=== PATIENT | male | born 1960 | race Caucasian/White ===

== ENCOUNTER 2017-08-29 14:34 | Inpatient (IN) | payer BC ==
[2017-08-29 15:11] LABS: #Basophils 0.1 thou/uL (0.0-0.2); #Lymphocytes 1.6 thou/uL (1.20-3.40); #Monocytes 0.6 thou/uL (0.11-0.59); #Neutrophils 6.3 thou/uL (1.40-6.50); %Basophils 0.8 % (0.0-1.0); %Eosinophils 0.3 % (0.0-10.0); %Lymphocytes 19.1 % (21.0-51.0); %Monocytes 6.8 % (0.0-10.0); Hemoglobin 13.4 g/dL (14.0-18.0); Mean Corpuscular HGB CONC 34.8 g/dL (32.0-36.0); Mean Corpuscular Hemoglobin 30.9 pg (27.0-31.0); Mean Corpuscular Volume 88.7 fl (80.0-94.0); Platelet Count 283 thou/uL (130-400); RBC Distribution Width 12.5 % (11.5-14.5); Red Blood Cell (RBC) Count 4.33 mill/uL (4.70-6.10); White Blood Cell (WBC) Count 8.6 thou/uL (4.8-10.8)
--- NOTE | 2017-08-29 15:26 | RAD ---
CHEST ONE VIEW: History: Chest pain. Comparison: None. FINDINGS: The lungs are clear. No pneumothorax or effusion. Cardiac silhouette and mediastinal contours are wit hin normal limits. IMPRESSION: NO acute intrathoracic abnormality. POS: OFF
[2017-08-29 15:33] LABS: ALT (SGPT) 16 U/L (8-55); AST (SGOT) 17 U/L (5-34); Albumin 4.3 g/dL (3.5-5.0); Alkaline Phosphatase 86 U/L (40-150); Anion Gap 13 mmol/L (10-20); BUN (Urea Nitrogen) 14 mg/dL (8.4-25.7); CK (CPK) 138 U/L (30-200); Calc. Creatinine Clearance 0 mL/min (70-130); Calcium 9.4 mg/dL (7.8-10.44); Carbon Dioxide 23 mmol/L (22-29); Chloride 106 mmol/L (98-107); Estimated GFR-MDRD 90; Glucose 109 mg/dL (70-105); Potassium 3.5 mmol/L (3.5-5.1); Protein, Total 7.3 g/dL (6.0-8.3); Sodium 138 mmol/L (136-145)
[2017-08-29 15:36] LABS: CKMB 0.6 ng/mL (0-6.6); Troponin I Less than 0.010 ng/mL (< 0.028)
[2017-08-29] MEDS ORDERED: Nitroglycerin 2% Ointment 1 INCH/1 GM Packet ONE (15:45)
[2017-08-29 18:54] LABS: Troponin I Less than 0.010 ng/mL (< 0.028)
[2017-08-29] MEDS ORDERED: Acetaminophen 325 MG TAB PO PRN ×2 (19:08→19:18)
[2017-08-29] MEDS ORDERED: Ondansetron ODT 4 MG TAB SL PRN (19:08)
[2017-08-29] MEDS ORDERED: Ondansetron HCl/PF 4 MG/2 ML Vial IVP PRN ×2 (19:08→19:18)
[2017-08-29] MEDS ORDERED: Ondansetron ODT 4 MG TAB PO PRN (19:18)
[2017-08-29] MEDS ORDERED: Nitroglycerin 0.4 MG TAB (25 Tab Bottle) PO PRN (19:18)
[2017-08-29] MEDS ORDERED: Mag-Al 1200 mg/1200 mg/30 ML UDCUP PO PRN (19:18)
[2017-08-29 20:02] VITALS: BMI 27.0
[2017-08-29] MEDS: Docusate 100 MG CAP PO SCH (21:21)
[2017-08-29] MEDS: Famotidine 20 MG TAB PO SCH (21:21)
[2017-08-29] MEDS: Nitroglycerin 2% Ointment 1 INCH/1 GM Packet TOP SCH (21:21)
[2017-08-29 22:00] LABS: Troponin I Less than 0.010 ng/mL (< 0.028)
--- NOTE | 2017-08-29 22:36 | HP ---
PRIMARY CARE PHYSICIAN: Dr. Pedraza. CHIEF COMPLAINT: Tightness in the chest and losing my voice. HISTORY OF PRESENT ILLNESS: Mr. Cortez is a pleasant 57-year-old gentleman who has a history of hy pertension and prediabetes as well as spasmodic dysphonia. He was in his usual state of health until earlier today. He says he was just basically sitting at his desk doing some paperwork, when he star garry having some tightness in his chest. He says he rated it about 5/10, it was continuous and he say s he was not really feeling right. For this reason, he went and apparently saw an EMT who then refer red him to the hospital here. He says he was given nitroglycerin paste and aspirin and the pain has since improved to about a 3/10. It has radiated into his right arm and he says down the radial vein. He denies feeling short of breath, but did have some nausea. There was no vomiting; however, no di aphoresis. He says while he was in the ambulance on the way to the hospital, he started losing his v oice, then getting extremely hoarse. He says something like this happen about 8 years ago after he h ad returned from a trip to [place]. He says that he lost a whole lot of weight, lost a lot of his musc le mass as well as losing his voice. He saw all kinds of a specialist and was eventually referred to the [facility]. He says while he was there, they did not know what was going on with him. They th ought he might have Davida Gehrig disease as well as an advanced Parkinson's. This was ruled out and ev entually he was labeled with a diagnosis of spasmodic dysphonia. His is at the bedside says payal t they noticed that the muscles around the vocal cords were hypertrophied and they did some type of m uscle reduction surgery sounds like a myomectomy to help the situation and eventually it went away. REVIEW OF SYSTEMS: Constitutional: There have been no fevers or chills, no night sweats, no weight loss. HEENT: He denies any headaches, no dizziness, no visual changes, no sore throat, no rhinorrhe a, no neck pain, but he has had the decrease in his voice. Pulmonary: No hemoptysis, no cough, no w heezing. Cardiovascular: As in the history of present illness. Gastrointestinal: He has had some nausea, but no vomiting, no change in bowels. Genitourinary: No urinary frequency, hematuria, no he sitancy. Neurologic: No focal weakness, numbness, no seizures. Psychiatric: No symptoms of anxiet y or depression. Skin/Integument: No skin changes. No rash. Musculoskeletal: No muscle pains, we akness or joint pains. PAST MEDICAL HISTORY: Significant for spasmodic dysphonia, hypertension, prediabetes, and restless l egs syndrome. PAST SURGICAL HISTORY: He had some type of muscles remove from around the vocal cords as well as Bot ox injections prior to that. ALLERGIES: CODEINE. SOCIAL HISTORY: He is , has three adopted children. He works at the [employer]. He is . He rarely drinks. He denies any tobacco use. FAMILY HISTORY: Significant for hypertension, diabetes, and his mother had heart disease and at age 77 and also had Parkinson disease. PHYSICAL EXAMINATION: GENERAL: He is alert and oriented. He appears to be in no acute distress. VITAL SIGNS: Blood pressure was 143/96, heart rate 85, respiratory rate 16, and temperature is 98.8. HEENT: His pupils are equal, round, and reactive. Extraocular muscles are intact. Sclerae are anic teric. Throat no erythema, no exudates. NECK: No adenopathy, no bruits, no masses were noted. LUNGS: Clear to auscultation. There was no wheezing, no rales. CARDIOVASCULAR: He had a normal S1, S2. There was no S3 or S4. No murmurs, clicks or rubs. ABDOMEN: Obese, it is soft, it is nontender, and nondistended. Positive for bowel sounds. There is no rebound or guarding. EXTREMITIES: There is no clubbing, cyanosis, no edema. NEUROLOGICALLY: His exam is nonfocal. LABORATORY: EKG: Sinus rhythm, the rate is 97, he did have a Q-wave in 3 possibly also in aVF and t here were some nonspecific ST wave changes. Chest x-ray: Heart size is normal. The aortic arch was a bit flattened; however, there was no airspace disease and no evidence of pleural effusion. Sodium was 138, potassium 3.5, chloride is 106, CO2 was 23, BUN of 14, creatinine 0.87, and glucose is 109. Troponin less than 0.010. White blood cell count 8.6, hemoglobin 13.4, hematocrit is 38.4, platele t count is 283. ASSESSMENT AND PLAN: 1. This is a pleasant 57-year-old gentleman who presents with chest tightness and also losing his vo ice. I have explained to the patient that is very hard to determine if these 2 problems are related or not. I suspect that the loosing of the voice that is likely an exacerbation of what he had severa l years ago and unlikely related to the initial present complaint of chest tightness. With regards t o the chest tightness, he is at moderate risk for coronary artery disease. He will be placed in obse rvation, ruled out, and will get a nuclear stress test to further risk stratify along with a lipid pa dinesh. We will also check an echocardiogram in the event this is some type of viral pericarditis, whic h is unlikely; however, we will check an echo as well. 2. Hypertension. We will continue losartan as well as p.r.n. medication for blood pressure. 3. Prediabetes. Continue metformin and we will also place him on sliding scale insulin. Further re commendations are to follow.
[2017-08-30] MEDS: Nitroglycerin 2% Ointment 1 INCH/1 GM Packet TOP SCH ×2 (04:59→13:55)
[2017-08-30 05:45] LABS: #Basophils 0.1 thou/uL (0.0-0.2); #Eosinphils 0.1 thou/uL (0.0-0.7); #Lymphocytes 2.2 thou/uL (1.20-3.40); #Monocytes 0.7 thou/uL (0.11-0.59); #Neutrophils 3.9 thou/uL (1.40-6.50); %Basophils 0.8 % (0.0-1.0); %Eosinophils 1.7 % (0.0-10.0); %Lymphocytes 31.7 % (21.0-51.0); %Monocytes 9.6 % (0.0-10.0); %Neutrophils 56.3 % (42.0-75.0); Hemoglobin 12.7 g/dL (14.0-18.0); Mean Corpuscular Hemoglobin 31.1 pg (27.0-31.0); Mean Corpuscular Volume 91.7 fl (80.0-94.0); Mean Platelet Volume 8.9 fL (7.4-10.4); Platelet Count 183 thou/uL (130-400); RBC Distribution Width 12.9 % (11.5-14.5); Red Blood Cell (RBC) Count 4.07 mill/uL (4.70-6.10)
[2017-08-30 05:46] LABS: Anion Gap 13 mmol/L (10-20); BUN (Urea Nitrogen) 14 mg/dL (8.4-25.7); Calc. Creatinine Clearance 122 mL/min (70-130); Carbon Dioxide 22 mmol/L (22-29); Cardiac Risk 5.9 (Less than 4.5); Chloride 108 mmol/L (98-107); Cholesterol 218 mg/dl (< 200 Desired); Estimated GFR-MDRD Greater than 90; Glucose 112 mg/dL (70-105); HDL Cholesterol 37 mg/dL (>60 Neg Risk); Potassium 3.8 mmol/L (3.5-5.1); Sodium 139 mmol/L (136-145)
[2017-08-30 05:55] LABS: LDL Cholesterol, Calculated 131 mg/dL
[2017-08-30 08:19] LABS: Triglycerides 220 mg/dL (Less than 150)
[2017-08-30] MEDS: Docusate 100 MG CAP PO SCH (08:35)
[2017-08-30] MEDS: Famotidine 20 MG TAB PO SCH ×2 (08:36→21:03)
[2017-08-30] MEDS ORDERED: Aspirin 325 MG TAB PO SCH (09:00)
[2017-08-30] MEDS ORDERED: Enoxaparin Sodium 40 MG/0.4 ML SYRINGE SC SCH (09:00)
[2017-08-30] MEDS ORDERED: Iopamidol 370 76% 100 ML VIAL ONE (11:18)
--- NOTE | 2017-08-30 13:36 | PDOC.PN ---
- Subjective Encounter Start Date: 08/30/17 Encounter Start Time: 13:35 Mr. Cortez was seen today in follow-up of chest pain. He is feeling a little better today. His voice has improved. - Objective Resuscitation Status: Resuscitation Status FULL:Full Resuscitation MAR Reviewed: Yes Vital Signs & Weight: Vital Signs (12 hours) Temp Pulse Resp BP BP Pulse Ox 08/30/17 11:43 98.2 F 63 16 115/83 96 08/30/17 07:38 97.5 F L 70 18 08/30/17 07:10 98.3 F 68 16 102/71 99 08/30/17 04:25 70 18 105/66 98 Weight Weight 193 lb 11.2 oz Result Diagrams: 08/30/17 04:34 08/30/17 04:34 Phys Exam - Physical Examination HEENT: PERRLA Respiratory: no wheezing, no rales, no rhonchi, clear to auscultation bilateral Cardiovascular: RRR, no significant murmur, no rub Gastrointestinal: soft, non-tender, no distention, positive bowel sounds Musculoskeletal: no edema Dx/Plan (1) Chest pain Code(s): R07.9 - CHEST PAIN, UNSPECIFIED Status: Acute (2) Hypertension Code(s): I10 - ESSENTIAL (PRIMARY) HYPERTENSION Status: Acute (3) Dyslipidemia Code(s): E78.5 - HYPERLIPIDEMIA, UNSPECIFIED Status: Acute - Plan * Chest pain- Stress test results were noted- he had an elevated TID * Cardiology has been consulted * HTN- blood pressure has been stable * Dyslipidemia- will change Pravastatin to Lipitor.
--- NOTE | 2017-08-30 13:44 | NM ---
CARDIAC SPECT: HISTORY: A 57-year-old male with chest pain, hypertension, diabetes. TECHNIQUE: A myocardial perfusion scan was performed using the single-isotope 1-day protocol with Technetium 99m sestamibi. Eleven mCi were injected intravenously for the rest exam followed by 32 mCi for the stre ss study. Pharmacologic stress with adenosine is monitored and interpreted by Barb Wilson PA-C. FINDINGS: Homogeneous tracer distribution is seen in the myocardial segments on stress and rest images without fixed or reversible defects. The left ventricular cavity appears larger on stress compared to rest w ith a TID ratio of 1.7. GATED SPECT LVEF: 62%. WALL MOTION EXAM: Normal. IMPRESSION: TID ratio is 1.7. Clinical correlation is recommended. POS: GABINO
[2017-08-30] MEDS ORDERED: Fentanyl 100 MCG/2 ML VIAL ONE (15:19)
[2017-08-30] MEDS ORDERED: Midazolam HCl 2 mg/2 ml Vial ONE (15:19)
[2017-08-30] MEDS ORDERED: Lidocaine 1% (PF) 30 ML VIAL ONE (15:29)
[2017-08-30] MEDS ORDERED: Vecuronium 10 MG VIAL ONE ×2 (15:33→16:16)
[2017-08-30] MEDS ORDERED: Calcium Chloride 1 GM/10 ML Abboject SYRINGE ONE (15:33)
[2017-08-30] MEDS ORDERED: PROPOFOL 200 MG/20 ML VIAL ONE (15:33)
[2017-08-30] MEDS ORDERED: Aminocaproic Acid 5 GM/20 ML VIAL ONE (15:33)
[2017-08-30] MEDS ORDERED: Heparin 5,000 UNITS/ML VIAL ONE (15:33)
[2017-08-30] MEDS ORDERED: Sodium Bicarb 50 MEQ/50 ML Abboject 8.4% SYRINGE ONE (15:33)
[2017-08-30] MEDS ORDERED: Heparin 30,000 units/30 ml VIAL ONE (15:33)
[2017-08-30] MEDS ORDERED: PHENYLEPHRINE-NS 100 MCG/ML 10 ML SYRINGE ONE (15:33)
[2017-08-30] MEDS ORDERED: Thrombin 5000 UNITS/5 ML VIAL ONE (15:33)
[2017-08-30] MEDS ORDERED: Protamine Sulfate 250 MG/25 ML VIAL ONE (15:33)
[2017-08-30] MEDS ORDERED: DOPamine 400 MG/10 ML VIAL ONE (15:33)
[2017-08-30] MEDS ORDERED: Nitroglycerin 100MG/250ML BOT 250 ML ONE (15:48)
[2017-08-30] MEDS ORDERED: Heparin 10,000 UNITS/1 ML VIAL ONE ×2 (16:08→16:42)
[2017-08-30] MEDS ORDERED: Midazolam HCl 5 mg/5 ml Vial ONE (16:16)
[2017-08-30] MEDS ORDERED: Dexmedetomidine 200 MCG/2 ML VIAL ONE (16:16)
[2017-08-30] MEDS ORDERED: Atropine Sulfate 1 mg/1 ml Vial ONE (16:17)
[2017-08-30] MEDS ORDERED: ADENOSINE 60 MG/20 ML VIAL ONE (16:34)
[2017-08-30] MEDS ORDERED: Heparin 10,000 UNITS/1 ML VIAL 30,000 UNITS in Sodium Chloride 0.9% 1,000 ML FS SCH (16:45)
--- NOTE | 2017-08-30 16:59 | CON ---
DATE OF CONSULTATION: 08/30/2017 REASON FOR CONSULTATION: Chest pain, abnormal stress study. HISTORY OF PRESENT ILLNESS: Mr. Crotez is a very pleasant 57-year-old gentleman with a past histor y of diabetes mellitus, hypertension, hyperlipidemia, recently presented with chest pain. It was acu te in onset, lasting for 4 hours. It was dull in nature with radiation to his neck and jaw in additi on to left arm pain. No diaphoresis present. No other ameliorating or exacerbating factors present. He has no previous history of underlying coronary artery disease. PAST MEDICAL HISTORY: As above. ALLERGIES: CODEINE. SOCIAL HISTORY: He is . No current tobacco or alcohol use. FAMILY HISTORY: Positive for CAD. REVIEW OF SYSTEMS: Ten-point is reviewed and as above, otherwise negative. PHYSICAL EXAMINATION: GENERAL: Patient is a pleasant male who is in no acute distress. The patient appears his/her stated age. VITAL SIGNS: Blood pressure 115/83, pulse 60, temperature 98.2. NEUROLOGIC: The patient is alert and oriented times 3 with no focal neurologic deficits. HEENT: Sclerae without icterus. Mouth has moist mucous membranes with normal pallor. NECK: No JVD. Carotid upstroke brisk. No bruits bilaterally. LUNGS: Clear to auscultation with unlabored respirations. BACK: No scoliosis or kyphosis. CARDIAC: Regular rate and rhythm with normal S1 and S2. No S3 or S4 noted. No significant rubs, murmurs, thrills, or gallops noted throughout the precordium. PMI is not displa fransisco. There is no parasternal heave. ABDOMEN: Soft, nontender, nondistended. No peritoneal signs present. No hepatosplenomegaly. No abnormal striae. EXTREMITIES: A 2+ femoral and 2+ dorsalis pedis pulses. No cyanosis, clubbing, or edema. SKIN: No gross abnormalities. PERTINENT LABS: Hemoglobin 12.7, creatinine 0.83. EKG: Normal sinus rhythm, nonspecific ST-T wave changes. Stress rest myocardial perfusion study, no ischemia present with a TID of 1.7. IMPRESSION: 1. Chest pain. 2. Abnormal stress study. 3. Diabetes mellitus. 4. Hypertension. RECOMMENDATIONS: Mr. Cortez' symptoms certainly suggest angina. His elevated TID is likely second dixie to low end systolic and end diastolic volumes. Given though the symptoms strongly suggesting ang zohreh, we would recommend coronary angiography plus PCI. I discussed the procedure in full detail with Mr. Cortez. I discussed the procedure in full detail with the patient. The risks of the procedur e were also discussed. The risks of the procedure include but are not limited to the following: Patricia th, stroke, ME, need for emergency surgery, loss of limb, bleeding, and infection, as well as a react ion to the dye causing kidney failure and needing long-term dialysis. I also discussed the risks of PCI to include all of the above including coronary dissection and perforation in addition to acute st ent thrombosis and restenosis. All questions about the procedure were answered. Given the above, th e patient agreed to proceed with coronary angiography and possible PCI. All questions were answered, also discussed drug-coated versus nondrug stent placement. There is no contraindication to proceed if needed. Further recommendations pending the above.
[2017-08-30] MEDS ORDERED: Albumin 5% 500 ML ONE (17:18)
[2017-08-30] MEDS ORDERED: Fentanyl 250 MCG/5 ML VIAL ONE (18:00)
[2017-08-30] MEDS ORDERED: Magnesium Sulfate 5 GM in Sodium Chloride 0.9% 250 ML 1,000 ML IV SCH (19:05)
[2017-08-30] MEDS ORDERED: Post-Op Insulin Drip Protocol IVPB ONE (19:05)
[2017-08-30] MEDS ORDERED: hydrALAZINE 20 MG/ML VIAL SLOW IVP PRN (19:05)
[2017-08-30] MEDS ORDERED: Mag-Al 1200 mg/1200 mg/30 ML UDCUP PO PRN (19:05)
[2017-08-30] MEDS ORDERED: Phenylephrine 10 MG/NS 250 ML 250 ML IVPB PRN (19:05)
[2017-08-30] MEDS ORDERED: Ondansetron HCl/PF 4 MG/2 ML Vial IVP PRN (19:05)
[2017-08-30] MEDS ORDERED: Promethazine HCl 25 MG/ML VIAL IM PRN (19:05)
[2017-08-30] MEDS ORDERED: Fentanyl 100 MCG/2 ML VIAL SLOW IVP PRN (19:05)
[2017-08-30] MEDS ORDERED: Bisacodyl 5 MG TAB PO PRN (19:05)
[2017-08-30] MEDS ORDERED: Nitroglycerin 50 MG/250 ML BOT 250 ML IVPB PRN (19:05)
[2017-08-30] MEDS ORDERED: Norepinephrine 8 MG/0.9% NS 250 ML IVPB PRN (19:05)
[2017-08-30] MEDS ORDERED: DOPamine 400 MG/D5W 250 ML 250 ML IVPB PRN (19:05)
[2017-08-30] MEDS ORDERED: Hetastarch 6% 500 ML 500 ML IVPB PRN (19:05)
[2017-08-30] MEDS ORDERED: Acetaminophen 325 MG TAB PO PRN (19:05)
[2017-08-30] MEDS ORDERED: Guaifenesin DM 100-10/5 ML UDCUP PO PRN (19:05)
[2017-08-30] MEDS ORDERED: HYDROcodone/Acetaminophen 5/325 mg Tablet PO PRN ×2 (19:05)
[2017-08-30] MEDS ORDERED: Bisacodyl 10 MG SUPP PR PRN (19:05)
[2017-08-30] MEDS ORDERED: Dextrose 50% Abboject 50 ML SYRINGE SLOW IVP PRN (19:09)
[2017-08-30] MEDS ORDERED: Dextrose 5% in Water 1,000 ML IV PRN (19:09)
[2017-08-30] MEDS ORDERED: Ventilator Sedation Protocol 1 EACH FS PRN (19:15)
[2017-08-30 19:17] LABS: CO2 Tension 36.6 mmHg (35.0-45.0); O2 Tension (PaO2) 90.5 mmHg (80.0-100.0); pH, Arterial 7.35 (7.35-7.45)
[2017-08-30 19:18] LABS: Actual Bicarbonate (HCO3a) 19.8 mEq/L (22-26); Base Excess (BEa) 5.2 mEq/L (0 (+/-) 2.5); Calcium, Ionized 1.2 mmol/L (1.12-1.30); Hematocrit-ABG 32.5 % (42.0-52.0); Hemoglobin (Hb) 10.3 g/dL (14.0-18.0)
[2017-08-30 19:19] LABS: Puncture Site AL
[2017-08-30 19:22] LABS: INR-International Normal Ratio 1.2; PTT 27.8 SEC (22.9-36.1); Prothrombin Time 15.1 SEC (12.0-14.7)
[2017-08-30 19:28] LABS: Anion Gap 10 mmol/L (10-20); BUN (Urea Nitrogen) 13 mg/dL (8.4-25.7); Calc. Creatinine Clearance 127 mL/min (70-130); Calcium 8.6 mg/dL (7.8-10.44); Carbon Dioxide 21 mmol/L (22-29); Chloride 110 mmol/L (98-107); Estimated GFR-MDRD Greater than 90; Glucose 147 mg/dL (70-105); Hemoglobin 10.8 g/dL (14.0-18.0); Mean Corpuscular HGB CONC 33.7 g/dL (32.0-36.0); Mean Corpuscular Hemoglobin 30.2 pg (27.0-31.0); Mean Corpuscular Volume 89.6 fl (80.0-94.0); Mean Platelet Volume 7.6 fL (7.4-10.4); Platelet Count 237 thou/uL (130-400); Potassium 3.8 mmol/L (3.5-5.1); RBC Distribution Width 12.6 % (11.5-14.5); Red Blood Cell (RBC) Count 3.57 mill/uL (4.70-6.10); Sodium 137 mmol/L (136-145); White Blood Cell (WBC) Count 23.3 thou/uL (4.8-10.8)
[2017-08-30] MEDS ORDERED: Morphine 4 MG/ML VIAL SLOW IVP PRN ×2 (19:30→19:41)
[2017-08-30] MEDS: Fentanyl 100 MCG/2 ML VIAL SLOW IVP PRN (19:39)
[2017-08-30] MEDS: Insulin Regular 300 UNITS/3 ML VIAL SC PRN ×2 (19:41→23:09)
[2017-08-30] MEDS ORDERED: Propofol 1,000 MG/100 ML VIAL IV PRN (19:41)
[2017-08-30] MEDS ORDERED: Lorazepam 2 MG/ML VIAL SLOW IVP PRN (19:41)
[2017-08-30] MEDS ORDERED: Fentanyl BOLUS 250 ML IVPB PRN (19:41)
[2017-08-30] MEDS ORDERED: DISCONTINUE PREVIOUS NARCOTIC PAIN MEDICATIONS AND BENZODIAZEPINES FS SCH (19:41)
[2017-08-30] MEDS ORDERED: Propofol BOLUS 1,000 MG/100 ML VIAL IV PRN (19:41)
[2017-08-30] MEDS ORDERED: fentaNYL Citrate/PF 2,000 MCG in Sodium Chloride 0.9% 60 ML IV SCH (19:41)
[2017-08-30 19:49] LABS: Band 5 % (5-11); Lymphocytes 11 % (21-51); MDiff Complete? YES; Monocytes 7 % (0-10); Neutrophil 77 % (42-75); Ovalocytes SLIGHT = 2-5 cells (100X) (0-1/hpf); PLT Morphology Comment Appears Adequate; Polychromasia SLIGHT = 2-3 cells (100X) (0-2/hpf)
[2017-08-30] MEDS: Potassium Chloride 20 MEQ/100 ML PREMIX BAG IVPB PRN (20:40)
--- NOTE | 2017-08-30 20:41 | RAD ---
FRONTAL RADIOGRAPH CHEST SUPINE 08/30/17 COMPARISON: 08/29/17 HISTORY: Evaluate chest following open heart surgery. FINDINGS: There is mild patchy opacity in the medial left lung base suggesting left lower lobe volume loss. An endotracheal tube in place, the distal tip of the endometrial tube appearing to approach the tuan a nd/or extend into the region of the right main stem bronchus. The endotracheal tube could be retracte d 3 cm. Midline sternotomy wires are present. Right subclavian central venous catheter terminates ove r the region of the right atrium inferiorly. Postsurgical drains overlie the mediastinum. Supine imag ing limits assessment for pleural fluid and pneumothorax. IMPRESSION: Lines and tubes as above. This includes a low lying endotracheal tube. Increased density in the left lung base as detailed above. Findings were called to Sejal, steam conditioner operator in CCU at 7:25 p.m., 08/30/17. Code CR POS: GABINO
[2017-08-30] MEDS ORDERED: Pramipexole Di-HCl 0.125 MG TAB PO SCH (21:00)
[2017-08-30] MEDS ORDERED: Famotidine/PF 20 mg/2ml Vial SLOW IVP SCH (21:00)
[2017-08-30] MEDS: CEFAZOLIN/Water 2 GM/20 ML SYRINGE SLOW IVP SCH (21:02)
[2017-08-30] MEDS: Famotidine 40 MG/4 ML VIAL SLOW IVP SCH (22:08)
[2017-08-30] MEDS: Atorvastatin Calcium 20 MG TAB PO SCH (22:10)
[2017-08-31 01:24] LABS: Hemoglobin 9.8 g/dL (14.0-18.0)
--- NOTE | 2017-08-31 01:29 | OP ---
PREOPERATIVE DIAGNOSIS: Dissection of the right coronary artery. PROCEDURE: Coronary bypass graft x1 off pump, saphenous vein graft to the distal right coronary marcelo ry. SURGEON: Eugene Navarro MD INFORMATICS PHARMACIST: Dr. Buchanan. TRANSFUSION: None. FINDINGS: The patient had evidence of dissection of the main right coronary artery extending to midw ay between the acute margin of the heart and the PDA takeoff. The acute marginal appeared to be diss ected throughout its length. PROCEDURE IN DETAIL: After adequate anesthesia had been obtained, the patient was prepped and draped . While I performed a median sternotomy, Dr. Buchanan harvested the left greater saphenous vein. It wa s somewhat thick walled in the upper thigh and somewhat small caliber in the lower thigh. The patien t was heparinized. Octopus retractor was used to retract the right coronary artery, midway between t he acute margin and the PDA. It was opened at this level and at that time the arteriotomy had entere d the dissection plane. The artery was then exposed more distally on the heart near the PDA takeoff what appeared to be more normal, and it was opened and appeared normal in appearance here. Saphenous vein was anastomosed here using a 7-0 Prolene suture passing a 2-mm probe distally prior to tying th e suture line. A Linkwood-Jd tape had been placed around the right coronary artery just past the acute margin of the heart for control of blood flow, and when this was released, the previously opened diss ection more proximally had vigorous bleeding. This tissue was then closed with a double layer of 6-0 Prolene suture. Following this, partial-occluding clamp was placed on the aorta after getting the b lood pressure down to about 80, and a single proximal anastomosis performed here. Flow was then rest ored. Inferior wall which had been dyskinetic on echo appeared to be squeezing it to some degree, al though ST segments continued to be high. Protamine was given to reverse the heparin. Mediastinal dr barr x2 were placed, following which the sternum was reapproximated with #7 interrupted wire using va ncomycin paste on the sternal edges, platelet-rich blood, and platelet-poor plasma. Subcutaneous tis gail and skin were closed in layers.
[2017-08-31 01:41] LABS: Potassium 4.4 mmol/L (3.5-5.1)
[2017-08-31] MEDS: Insulin Regular 300 UNITS/3 ML VIAL SC PRN ×3 (03:33→20:12)
[2017-08-31] MEDS: CEFAZOLIN/Water 2 GM/20 ML SYRINGE SLOW IVP SCH ×2 (03:33→11:23)
[2017-08-31 04:15] LABS: #Lymphocytes 0.6 thou/uL (1.20-3.40); #Monocytes 0.7 thou/uL (0.11-0.59); #Neutrophils 13.2 thou/uL (1.40-6.50); %Basophils 0.1 % (0.0-1.0); %Eosinophils 0.1 % (0.0-10.0); %Lymphocytes 4.3 % (21.0-51.0); %Monocytes 5.1 % (0.0-10.0); %Neutrophils 90.4 % (42.0-75.0); Hemoglobin 9.7 g/dL (14.0-18.0); Mean Corpuscular HGB CONC 34.5 g/dL (32.0-36.0); Mean Corpuscular Hemoglobin 30.9 pg (27.0-31.0); Mean Corpuscular Volume 89.3 fl (80.0-94.0); Mean Platelet Volume 8.1 fL (7.4-10.4); Platelet Count 210 thou/uL (130-400); RBC Distribution Width 12.5 % (11.5-14.5); Red Blood Cell (RBC) Count 3.14 mill/uL (4.70-6.10); White Blood Cell (WBC) Count 14.5 thou/uL (4.8-10.8)
[2017-08-31 04:24] LABS: Anion Gap 11 mmol/L (10-20); BUN (Urea Nitrogen) 14 mg/dL (8.4-25.7); Calc. Creatinine Clearance 121 mL/min (70-130); Calcium 8.2 mg/dL (7.8-10.44); Carbon Dioxide 21 mmol/L (22-29); Chloride 111 mmol/L (98-107); Estimated GFR-MDRD Greater than 90; Glucose 129 mg/dL (70-105); Potassium 4.2 mmol/L (3.5-5.1); Sodium 139 mmol/L (136-145)
[2017-08-31 07:48] LABS: Actual Bicarbonate (HCO3a) 16.2 mEq/L (22-26); Base Excess (BEa) -3.9 mEq/L (0 (+/-) 2.5); CO2 Tension 17.2 mmHg (35.0-45.0); Calcium, Ionized 1.1 mmol/L (1.12-1.30); Hematocrit-ABG 29.8 % (42.0-52.0); Hemoglobin (Hb) 9.4 g/dL (14.0-18.0); Puncture Site LINE; pH, Arterial 7.59 (7.35-7.45)
[2017-08-31] MEDS: Fentanyl 100 MCG/2 ML VIAL SLOW IVP PRN ×4 (07:55→13:36)
[2017-08-31] MEDS: FLUoxetine HCl 20 MG CAP PO SCH (07:56)
[2017-08-31] MEDS: Famotidine 40 MG/4 ML VIAL SLOW IVP SCH (07:56)
[2017-08-31] MEDS: Famotidine 20 MG TAB PO SCH ×2 (07:56→20:08)
[2017-08-31] MEDS: Aspirin 325 MG TAB PO SCH (07:56)
--- NOTE | 2017-08-31 08:36 | RAD ---
PORTABLE CHEST ONE VIEW: History: 57-year-old male follow up post op open heart. FINDINGS: Endotracheal tube, right subclavian catheter and chest tubes are in place. Patchy linear and parenchy mal changes in the perihilar and lower lung zones bilaterally, probably some residual subsegmental at electasis. No evidence for pneumothorax or other significant acute process. IMPRESSION: Slightly improving bilateral post-operative changes. No pneumothorax or other significant acute proce ss. POS: OFF
--- NOTE | 2017-08-31 08:43 | PDOC.PN ---
- Subjective Encounter Start Date: 08/31/17 Encounter Start Time: 08:41 Mr. Cortez was seen in follow-up. The events of yesterday were noted. He is complaining of feeling sore. He denies dyspnea - Objective Resuscitation Status: Resuscitation Status FULL:Full Resuscitation MAR Reviewed: Yes Vital Signs & Weight: Vital Signs (12 hours) Temp Pulse Resp BP Pulse Ox 08/31/17 08:00 100 F H 08/31/17 07:35 103 H 15 100 08/31/17 07:00 100 F H 08/31/17 06:42 107 H 08/31/17 06:00 19 08/31/17 04:00 12 08/31/17 02:08 105 H 104/62 08/31/17 02:00 12 08/31/17 00:00 12 08/30/17 22:20 89 108/67 08/30/17 22:00 12 Weight Admit Weight 185 lb 6.54 oz Weight 183 lb 13.848 oz Most Recent Monitor Data Heart Rate from ECG 113 NIBP 118/86 NIBP BP-Mean 93 Respiration from ECG 11 SpO2 97 I&O: 08/30/17 08/31/17 09/01/17 06:59 06:59 06:59 Intake Total 1765.3 20 Output Total 1495 155 Balance 270.3 -135 Result Diagrams: 08/31/17 04:05 08/31/17 04:05 Additional Labs: Accuchecks 08/31/17 08/31/17 08/30/17 08:08 03:05 23:02 POC Glucose 138 H 124 H 126 H 08/30/17 08/30/17 08/30/17 19:07 18:15 17:13 POC Glucose 150 H 158 H 146 H Phys Exam - Physical Examination HEENT: PERRLA Respiratory: no wheezing, no rales, no rhonchi, clear to auscultation bilateral Cardiovascular: RRR, no significant murmur, no rub Gastrointestinal: soft, non-tender, no distention, positive bowel sounds Musculoskeletal: no edema Dx/Plan (1) Chest pain Code(s): R07.9 - CHEST PAIN, UNSPECIFIED Status: Acute (2) Hypertension Code(s): I10 - ESSENTIAL (PRIMARY) HYPERTENSION Status: Acute (3) Dyslipidemia Code(s): E78.5 - HYPERLIPIDEMIA, UNSPECIFIED Status: Acute - Plan * Mr. Cortez was found to have a dissection of the RCA, and was taken for CABG yesterday. He is hemodynamically stable * HTN- blood pressure is stable * Blood glucose is controlled * Continue post op care as per CV surgery and Cardiology .
[2017-08-31] MEDS ORDERED: Cyanocobalamin (Vitamin B-12) 1,000 MCG TAB PO SCH (09:00)
[2017-08-31 09:27] LABS: Actual Bicarbonate (HCO3a) 20.8 mEq/L (22-26); CO2 Tension 37.5 mmHg (35.0-45.0); O2 Tension (PaO2) 99.4 mmHg (80.0-100.0); pH, Arterial 7.36 (7.35-7.45)
[2017-08-31 09:28] LABS: ALV-art Gradient 53.365 (0-20); Base Excess (BEa) -4.1 mEq/L (0 (+/-) 2.5); Calcium, Ionized 1.1 mmol/L (1.12-1.30); Hematocrit-ABG 33.6 % (42.0-52.0); Puncture Site ALINE
--- NOTE | 2017-08-31 09:48 | CON ---
DATE OF CONSULTATION: 08/31/2017 SERVICE: Pulmonary Medicine. HISTORY OF PRESENT ILLNESS: The patient is a 57-year-old white male who presented to the hospital with chest discomfort. He was on observation. He had a stress test which was abnormal prompting a cardiac catheterization. He had dissection of one of the arteries. He went for an emergent bypass graft and is postop day #1. This morning, he is intubated. He is comfortable otherwise, he has difficult time taking deep breath because of pleuritic chest discomfort. He has multiple chest tubes, mediastinal drain. He does have significant chest discomfort currently. That being said, it is not similar to what brought him to the hospital. Otherwise, there have been no significant events overnight. He has got weaned off of the inotrope and blood pressure medication. He continues to have multiple drains and IVs. He has a central and arterial line. Endotracheal tube is in position right now. PAST MEDICAL HISTORY: 1. Hypertension. 2. Prediabetes. 3. Restless leg syndrome. 4. Spasmodic dysphonia. 5. Coronary artery disease. PAST SURGICAL HISTORY: 1. Coronary artery bypass graft x1 vessel to RCA, postop day #1. 2. Laryngeal surgery. SOCIAL HISTORY: He is . 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 He does not have any significant alcohol, tobacco or illicit drug use. He is lifelong nonsmoker and has no exposure to chemicals, dust, asbestos or tuberculosis. FAMILY HISTORY: Noncontributory. REVIEW OF SYSTEMS: General, head, ears, eyes, nose, throat, cardiovascular, respiratory, GI, , musculoskeletal, neurologic and skin is negative except as mentioned in the HPI. PHYSICAL EXAMINATION: VITAL SIGNS: Afebrile with T-max of 100.0, pulse 113, blood pressure 144/83, respirations 11, saturation 97% on 40% FiO2 and a PEEP of 5. HEENT: Normocephalic, atraumatic. Sclerae are white, conjunctivae pink. Oral mucosa is moist without lesions. LUNGS: Decent air entry. Minimal crackles are present in the bibasilar region. There is no prolonged expiratory phase or wheezing appreciated. HEART: Normal rate and regular. ABDOMEN: Soft, nontender, nondistended. Bowel sounds are positive. MUSCULOSKELETAL: No cyanosis or clubbing. There is no pitting in the bilateral lower extremities. NEUROLOGICAL: Grossly nonfocal. LABORATORY DATA: WBC 14.5, hemoglobin 9.7, platelets 210,000. Neutrophil count is 90.4. INR 1.2. PH 7.59, pCO2 17, pO2 106. Basic metabolic profile is essentially unremarkable. Creatinine is 0.8 and stable. IMAGING: Chest x-ray demonstrates postoperative changes without any pneumothorax. There is an endotracheal tube, which is a couple of centimeters above the tuan. Left side pleural parenchymal changes are present, likely consistent with small effusion. I can clearly see the chest tube, mediastinal drains. ASSESSMENT: 1. Right coronary artery dissection, status post emergent coronary bypass graft. 2. Acute hypoxic respiratory failure, improving. 3. Chest pain. 4. Prediabetes. PLAN: We will continue supportive care. The patient is doing well on mechanical ventilation. I will put him upon spontaneous breathing trial. If he meets criteria, extubation will be considered. Pulmonary or Critical Care will continue to follow along. Critical care time: 30 minutes. [facility]
--- NOTE | 2017-08-31 18:46 | PRG ---
DATE OF SERVICE: 08/31/2017 SUBJECTIVE: Mr. Cortez is doing well. He was extubated today. He has no chest pain. He is sore. He is off all pressors. PHYSICAL EXAMINATION: VITAL SIGNS: Blood pressure 130/70, pulse 106, respirations 20. LUNGS: Clear to auscultation. HEART: Regular rate and rhythm. ABDOMEN: Soft, nontender, nondistended. EXTREMITIES: No edema. PERTINENT LABORATORY DATA: Hemoglobin 8.7. IMPRESSION: 1. Myocardial infarction. 2. Status post bypass surgery. RECOMMENDATIONS: Mr. Cortez is currently doing well. At this point, we will add low dose beta blo cker therapy in a.m. His blood pressure appears marginal. He is currently on aspirin. We will also add statin therapy. Incentive spirometry and ambulation were also discussed. I would also like to discuss with his brother.
[2017-08-31] MEDS: Atorvastatin Calcium 20 MG TAB PO SCH (20:08)
[2017-09-01] MEDS: Insulin Regular 300 UNITS/3 ML VIAL SC PRN (00:21)
[2017-09-01] MEDS: Ketorolac Tromethamine 30 MG/ML VIAL IVP SCH ×4 (00:21→17:56)
[2017-09-01 05:06] LABS: #Basophils 0.1 thou/uL (0.0-0.2); #Lymphocytes 2.1 thou/uL (1.20-3.40); #Monocytes 1.3 thou/uL (0.11-0.59); #Neutrophils 9.7 thou/uL (1.40-6.50); %Basophils 0.4 % (0.0-1.0); %Eosinophils 0.1 % (0.0-10.0); %Lymphocytes 15.6 % (21.0-51.0); %Monocytes 10.1 % (0.0-10.0); %Neutrophils 73.9 % (42.0-75.0); Hemoglobin 9.3 g/dL (14.0-18.0); Mean Corpuscular HGB CONC 33.3 g/dL (32.0-36.0); Mean Corpuscular Hemoglobin 30.3 pg (27.0-31.0); Mean Corpuscular Volume 90.8 fl (80.0-94.0); Mean Platelet Volume 8.3 fL (7.4-10.4); Platelet Count 207 thou/uL (130-400); RBC Distribution Width 12.9 % (11.5-14.5); Red Blood Cell (RBC) Count 3.08 mill/uL (4.70-6.10); White Blood Cell (WBC) Count 13.1 thou/uL (4.8-10.8)
[2017-09-01 05:16] LABS: Anion Gap 12 mmol/L (10-20); BUN (Urea Nitrogen) 19 mg/dL (8.4-25.7); Calc. Creatinine Clearance 107 mL/min (70-130); Calcium 8.6 mg/dL (7.8-10.44); Carbon Dioxide 24 mmol/L (22-29); Chloride 109 mmol/L (98-107); Estimated GFR-MDRD 87; Glucose 108 mg/dL (70-105); Sodium 141 mmol/L (136-145)
[2017-09-01] MEDS: Potassium Chloride 20 MEQ/100 ML PREMIX BAG IVPB PRN (05:27)
--- NOTE | 2017-09-01 07:17 | EKG ---
Test Reason : Blood Pressure : / mmHG Vent. Rate : 098 BPM Atrial Rate : 098 BPM P-R Int : 162 ms QRS Dur : 096 ms QT Int : 392 ms P-R-T Axes : 055 009 -02 degrees QTc Int : 500 ms Normal sinus rhythm Incomplete right bundle branch block Inferior infarct (cited on or before 29-AUG-2017) Anterior injury pattern Prolonged QT ACUTE MN / STEMI Consider right ventricular involvement in acute inferior infarct Abnormal ECG When compared with ECG of 29-AUG-2017 14:38, (Unconfirmed) Significant changes have occurred Confirmed by DR. Larissa LACKEY ([id number]) on 09/01/2017 7:17:06 AM Referred By: YANCY Confirmed By:DR. Larissa LACKEY
--- NOTE | 2017-09-01 08:14 | RAD ---
PORTABLE CHEST: Date: 09/01/17 HISTORY: Postop sternotomy. COMPARISON: 08/31/17. FINDINGS: The lungs are well aerated. There is streaky infiltrate and/or atelectasis in the left lung base. Dean g gaona otherwise clear. Heart size upper normal with postop sternotomy change. Central line overlie s the SVC/right atrium. IMPRESSION: Streaky atelectasis and/or infiltrate in the left lung base. POS: GABINO
--- NOTE | 2017-09-01 08:55 | ADD-OP ---
DATE OF ADDENDUM: 08/31/2017 ADDENDUM TO CATH REPORT Mr. Cortez underwent coronary angiography on 08/30/2017. The patient's symptoms suggested unstable angina. Please see previous consultation. His TID was also elevated suggesting balanced ischemia. He underwent coronary angiography and was not found to have significant coronary artery disease withi n the left system. There was difficulty in engagement of the right coronary artery. There was a sub selection into the conus branch. The conus branch, RV marginal branch and ostium of the right hebert ry artery were in close proximity. There continued to be engagement with the JR4 into of the conus b ranch. Injection performed showed slow flow with no flow at one point. After multiple injections, t here continued to be slow flow not only down the conus branch, but also down the RV marginal and righ t coronary artery. At that point, it was felt there was a dissection noted at the ostium of the righ t coronary artery. Dr. Navarro was consulted urgently. The 5-Singaporean sheath was exchanged for a 6-Fren ch sheath. Multiple attempts at revascularizing the right coronary artery were unsuccessful. Loose wire was used in addition to the JR4 and AR1. The ostium of the right coronary artery appeared to be in a horizontal plane with continued engagement of the conus branch despite the catheters that were used. After multiple attempts with the wire, it was decided to take the patient urgently for bypass surgery. The patient was given heparin. The dissection likely formed a flap not allowing the wire to pass. I did check on the patient on multiple times while in surgery and updated the family.
--- NOTE | 2017-09-01 09:17 | PDOC.PN ---
- Subjective Encounter Start Date: 09/01/17 Encounter Start Time: 09:14 Mr. Cortez was seen today in follow-up of chest pain. He is awake and alert. He has svetlana pain this morning. He denies dyspnea. - Objective Resuscitation Status: Resuscitation Status FULL:Full Resuscitation MAR Reviewed: Yes Vital Signs & Weight: Vital Signs (12 hours) Temp Pulse Ox 09/01/17 06:49 94 L 09/01/17 04:00 98.2 F 09/01/17 00:00 98.6 F Weight Admit Weight 183 lb 13.848 oz Weight 183 lb 13.848 oz Most Recent Monitor Data Heart Rate from ECG 105 NIBP 115/82 NIBP BP-Mean 94 Respiration from ECG 15 SpO2 95 I&O: 08/31/17 09/01/17 09/02/17 06:59 06:59 06:59 Intake Total 1765.3 380 450 Output Total 1495 1000 0 Balance 270.3 -620 450 Result Diagrams: 09/01/17 04:54 09/01/17 04:54 Additional Labs: Accuchecks 09/01/17 09/01/17 08/31/17 04:50 00:22 20:13 POC Glucose 107 129 H 122 H 08/31/17 08/31/17 16:05 11:59 POC Glucose 103 106 Phys Exam - Physical Examination HEENT: PERRLA Respiratory: no wheezing, no rales, no rhonchi, clear to auscultation bilateral Cardiovascular: RRR, no significant murmur, no rub Gastrointestinal: soft, non-tender, no distention, positive bowel sounds Musculoskeletal: no edema Dx/Plan (1) Chest pain Code(s): R07.9 - CHEST PAIN, UNSPECIFIED Status: Acute (2) Hypertension Code(s): I10 - ESSENTIAL (PRIMARY) HYPERTENSION Status: Acute (3) Dyslipidemia Code(s): E78.5 - HYPERLIPIDEMIA, UNSPECIFIED Status: Acute - Plan * Chest pain, and Coronary Dissection- patient is s/p CABG * HTN- blood pressure is stable * Pre-DM- blood glucose is stable * Chest tubes have been removed * Stable for transition out of the ICU .
[2017-09-01] MEDS: FLUoxetine HCl 20 MG CAP PO SCH (09:21)
[2017-09-01] MEDS: Famotidine 20 MG TAB PO SCH ×2 (09:21→21:01)
[2017-09-01] MEDS: Aspirin 325 MG TAB PO SCH (09:21)
--- NOTE | 2017-09-01 09:29 | PRG ---
DATE OF SERVICE: 09/01/2017 SERVICE: Pulmonary Medicine. INTERVAL HISTORY: The patient is doing fine from a respiratory standpoint. He is breathing very com fortably. He got both chest tubes removed. He denies any chest pains, nausea, vomiting, fevers or c hills. Otherwise, there were no events overnight. He has been able to get up and move around a catia le bit. He has transfer orders to the floor. There has been no interval change to his condition. PHYSICAL EXAMINATION: VITAL SIGNS: Afebrile, pulse 105, blood pressure 115/82, respirations 15, saturation 95% on room air . GENERAL: The patient is awake and alert, in no apparent distress. LUNGS: Decent air entry. There are no crackles present. No prolonged expiratory phase or wheezing is appreciated. HEART: Normal rate, regular. ABDOMEN: Soft, nontender, nondistended. Bowel sounds are positive. MUSCULOSKELETAL: No cyanosis or clubbing. There is no pitting in the bilateral lower extremities. NEUROLOGIC: Grossly nonfocal. LABORATORY DATA: WBC 13.1, hemoglobin 9.3, platelets 207,000. Basic metabolic profile is otherwise unremarkable. Chloride 109 and gently down trending. IMAGING: Chest x-ray demonstrates left lung base atelectasis is suspected. There is a little volume loss on that side. Otherwise, there is no acute cardiopulmonary abnormality. A right subclavian ce ntral venous catheter terminates in excellent position. Sternotomy wires are once again appreciated. ASSESSMENT: 1. Right coronary artery dissection, status post emergent coronary artery bypass graft x1 vessel. 2. Acute hypoxic respiratory failure, resolved. 3. Chest pain, resolved. 4. Prediabetes. DISCUSSION AND PLAN: We will continue our efforts at mobilizing the patient today. We will watch fo r signs of sepsis. Empiric antibiotics directed at lung issues will be initiated if he develops thos e features, but for the time being, my suspicion is that we are dealing with an atelectatic problem a t the left base. With mobilization, this should resolve. Pulmonary will continue to follow througho ut the week, intermittently. Please call with acute issues moving forward, but from my perspective, he is stable for transition to the telemetry unit.
[2017-09-01] MEDS ORDERED: Fentanyl 100 MCG/2 ML VIAL SLOW IVP PRN ×2 (09:50)
[2017-09-01] MEDS ORDERED: Mineral Oil ENEMA PR PRN (09:50)
[2017-09-01] MEDS ORDERED: HYDROcodone/Acetaminophen 5/325 mg Tablet PO PRN ×2 (09:50)
[2017-09-01] MEDS ORDERED: Mag-Al 1200 mg/1200 mg/30 ML UDCUP PO PRN (09:50)
[2017-09-01] MEDS ORDERED: Ondansetron HCl/PF 4 MG/2 ML Vial IVP PRN (09:50)
[2017-09-01] MEDS ORDERED: Bisacodyl 10 MG SUPP PR PRN (09:50)
[2017-09-01] MEDS ORDERED: Guaifenesin DM 100-10/5 ML UDCUP PO PRN (09:50)
[2017-09-01] MEDS ORDERED: diphenhydrAMINE 25 MG CAP PO PRN (09:50)
[2017-09-01] MEDS ORDERED: Bisacodyl 5 MG TAB PO PRN (09:50)
[2017-09-01] MEDS ORDERED: Nitroglycerin 0.4 MG TAB (25 Tab Bottle) SL PRN (09:50)
[2017-09-01] MEDS: Aspirin 325 mg Enteric Coated Tablet PO SCH (10:33)
[2017-09-01] MEDS: Lactated Ringer's 1,000 ML IV SCH (14:41)
--- NOTE | 2017-09-01 16:18 | PRG ---
DATE OF SERVICE: 09/01/2017 SUBJECTIVE: Mr. Cortez is doing better today. His chest tube has been removed. He is in good spi rits. No current complaints. No chest pain or pressure noted. He states he is weak. PHYSICAL EXAMINATION: VITAL SIGNS: Blood pressure 108/74, pulse 103, and respirations 20. LUNGS: Clear to auscultation. HEART: Regular rate and rhythm. ABDOMEN: Soft, nontender, nondistended. EXTREMITIES: No edema. PERTINENT LABORATORY DATA: Hemoglobin 9.3. Creatinine 0.9. Echo Doppler shows LVEF 50/55 percent. RV appears hypokinetic likely from recent RV infarct. IMPRESSION: 1. Dissected right coronary artery. 2. Status post bypass surgery. RECOMMENDATIONS: Mr. Cortez is doing well. Chest tubes have been discontinued. Continue incentiv e spirometry and ambulation. We will add low dose Lopressor in addition to statin therapy.
[2017-09-01] MEDS ORDERED: Promethazine HCl 25 MG/ML VIAL SLOW IVP PRN (18:12)
[2017-09-01] MEDS ORDERED: Ondansetron ODT 4 MG TAB PO PRN (20:57)
[2017-09-01] MEDS: Tamsulosin HCl 0.4 MG CAP PO SCH (21:01)
[2017-09-01] MEDS: Atorvastatin Calcium 40 MG TAB PO SCH (21:02)
[2017-09-02] MEDS: Ketorolac Tromethamine 30 MG/ML VIAL IVP SCH ×5 (00:05→23:27)
[2017-09-02] MEDS: Lactated Ringer's 1,000 ML IV SCH (05:42)
[2017-09-02] MEDS: Potassium Chloride 10 MEQ TAB PO SCH (09:17)
[2017-09-02] MEDS: FLUoxetine HCl 20 MG CAP PO SCH (09:17)
[2017-09-02] MEDS: Famotidine 20 MG TAB PO SCH ×2 (09:17→20:08)
[2017-09-02] MEDS: Furosemide 40 MG TAB PO SCH (09:18)
[2017-09-02] MEDS: Aspirin 325 mg Enteric Coated Tablet PO SCH (09:18)
--- NOTE | 2017-09-02 12:35 | PDOC.PN ---
- Subjective Encounter Start Date: 09/02/17 Encounter Start Time: 12:33 Mr. Cortez was seen today in follow-up post CABG. He denies chest pain, and he is breathing fine. He has been up to the chair to eat yesterday, and walked this morning with PT. - Objective Resuscitation Status: Resuscitation Status FULL:Full Resuscitation MAR Reviewed: Yes Vital Signs & Weight: Vital Signs (12 hours) Temp Pulse Pulse Pulse Resp BP BP 09/02/17 10:05 115 H 113 H 117/70 111/67 09/02/17 08:06 09/02/17 08:00 98.0 F 110 H 18 09/02/17 04:00 98.7 F 104 H 18 BP BP Pulse Ox Pulse Ox Pulse Ox 09/02/17 10:05 97 95 09/02/17 08:06 97 09/02/17 08:00 109/69 94 L 09/02/17 04:00 108/63 96 Weight Admit Weight 183 lb 13.848 oz Weight 195 lb 9.6 oz Most Recent Monitor Data Heart Rate from ECG 103 NIBP 120/80 NIBP BP-Mean 98 Respiration from ECG 15 SpO2 93 I&O: 09/01/17 09/02/17 09/03/17 06:59 06:59 06:59 Intake Total 380 2294 Output Total 1000 570 Balance -620 1724 Result Diagrams: 09/01/17 04:54 09/01/17 04:54 Additional Labs: Accuchecks 09/02/17 09/01/17 06:06 22:43 POC Glucose 116 H 116 H Phys Exam - Physical Examination HEENT: PERRLA Respiratory: no wheezing, no rales, no rhonchi, clear to auscultation bilateral Cardiovascular: RRR, no significant murmur, no rub Gastrointestinal: soft, non-tender, no distention, positive bowel sounds Musculoskeletal: no edema Dx/Plan (1) Chest pain Code(s): R07.9 - CHEST PAIN, UNSPECIFIED Status: Acute (2) Hypertension Code(s): I10 - ESSENTIAL (PRIMARY) HYPERTENSION Status: Acute (3) Dyslipidemia Code(s): E78.5 - HYPERLIPIDEMIA, UNSPECIFIED Status: Acute - Plan * Right Coronary Dissection- s/p CABG- he is clinically stable * HTN- blood pressure is acceptable * Pre-Diabetes- blood glucose has been stable * Continue - Cardia Rehab .
--- NOTE | 2017-09-02 15:38 | PRG ---
DATE OF SERVICE: 09/02/2017 SUBJECTIVE: This morning, he is awake, alert, responsive. He is walking in the halls. OBJECTIVE: VITAL SIGNS: His sats are 98.6 on room air, pulse 110, temperature 98, blood pressure 139/67. CHEST: Reveals no wheezing or crackles. CARDIAC: Normal S1, S2, no gallops. ABDOMEN: Soft without any masses. IMPRESSION: 1. Status post coronary artery bypass grafting. 2. Bronchitis. PLAN: The patient appears to be stable. Continue walking, PT, and supportive care. We will follow.
--- NOTE | 2017-09-02 16:41 | PDOC.CTH ---
Cardiology Progress Note - Subjective He is doing well. He has been passing gas. He has been walking with PT. - Objective Vital Signs Temp Pulse Pulse Pulse Resp BP BP 09/02/17 13:17 111 H 130 H 119/71 133/72 09/02/17 12:00 97.9 F 112 H 17 09/02/17 10:05 115 H 113 H 117/70 111/67 09/02/17 08:06 09/02/17 08:00 98.0 F 110 H 18 BP Pulse Ox Pulse Ox Pulse Ox 09/02/17 13:17 95 97 09/02/17 12:00 133/82 96 09/02/17 10:05 97 95 09/02/17 08:06 97 09/02/17 08:00 109/69 96 Admit Weight 183 lb 13.848 oz Weight 195 lb 9.6 oz 09/01/17 09/02/17 09/03/17 06:59 06:59 06:59 Intake Total 380 2294 Output Total 1000 570 Balance -620 1724 - Physical Examination General/Neuro: alert & oriented x3, NAD Neck: no JVD present Lungs: CTA, unlabored respirations Heart: RRR Abdomen: NT/ND Extremities: + edema B (1+ left leg.) - Telemetry Telemetry Rhythm: Stach - Labs Result Diagrams: 09/01/17 04:54 09/01/17 04:54 Troponin/CKMB CK-MB (CK-2) 0.6 ng/mL (0-6.6) 08/29/17 15:01 Troponin I Less than 0.010 ng/mL (< 0.028) 08/29/17 21:22 - Assessment/Plan 1. CAD. 2. S/P CABG PLAN: - Will increase BB today. - Continue ASA/statin. - Increase PT as tolerated.
[2017-09-02] MEDS: Tamsulosin HCl 0.4 MG CAP PO SCH (20:07)
[2017-09-02] MEDS: Metoprolol Tartrate 25 MG TAB PO SCH (20:08)
[2017-09-02] MEDS: Atorvastatin Calcium 40 MG TAB PO SCH (20:08)
[2017-09-02] MEDS ORDERED: Metoprolol Tartrate 25 MG TAB PO SCH (21:00)
[2017-09-03] MEDS: Ketorolac Tromethamine 30 MG/ML VIAL IVP SCH ×2 (06:03→12:37)
[2017-09-03] MEDS: Famotidine 20 MG TAB PO SCH ×2 (09:23→20:33)
[2017-09-03] MEDS: Metoprolol Tartrate 25 MG TAB PO SCH ×2 (09:23→20:33)
[2017-09-03] MEDS: Furosemide 40 MG TAB PO SCH (09:23)
[2017-09-03] MEDS: Potassium Chloride 10 MEQ TAB PO SCH (09:23)
[2017-09-03] MEDS: Aspirin 325 mg Enteric Coated Tablet PO SCH (09:24)
[2017-09-03] MEDS: FLUoxetine HCl 20 MG CAP PO SCH (09:24)
--- NOTE | 2017-09-03 12:19 | PDOC.PN ---
- Subjective Encounter Start Date: 09/03/17 Encounter Start Time: 12:18 Mr. Cortez was seen today in follow-up. He does not have any complaints today. He denies chest pain or shortness of breath. - Objective Resuscitation Status: Resuscitation Status FULL:Full Resuscitation MAR Reviewed: Yes Vital Signs & Weight: Vital Signs (12 hours) Temp Pulse Resp BP Pulse Ox 09/03/17 07:40 99.1 F 92 17 94 L 09/03/17 07:38 99.1 F 92 17 108/73 94 L 09/03/17 04:00 98.6 F 88 18 102/56 L 92 L Weight Admit Weight 183 lb 13.848 oz Weight 193 lb 14.4 oz Most Recent Monitor Data Heart Rate from ECG 103 NIBP 120/80 NIBP BP-Mean 98 Respiration from ECG 15 SpO2 93 I&O: 09/02/17 09/03/17 09/04/17 06:59 06:59 06:59 Intake Total 2294 1180 Output Total 570 2598 Balance 1724 -1418 Result Diagrams: 09/01/17 04:54 09/01/17 04:54 Additional Labs: Accuchecks 09/02/17 23:35 POC Glucose 124 H Phys Exam - Physical Examination HEENT: PERRLA Respiratory: no wheezing, no rales, no rhonchi, clear to auscultation bilateral Cardiovascular: RRR, no significant murmur, no rub Gastrointestinal: soft, non-tender, no distention, positive bowel sounds Musculoskeletal: no edema Dx/Plan (1) Chest pain Code(s): R07.9 - CHEST PAIN, UNSPECIFIED Status: Acute (2) Hypertension Code(s): I10 - ESSENTIAL (PRIMARY) HYPERTENSION Status: Acute (3) Dyslipidemia Code(s): E78.5 - HYPERLIPIDEMIA, UNSPECIFIED Status: Acute - Plan * Right Coronary Artery Dissection- he is s/p CABG- and clinically stable * HTN- blood pressure is stable- He is off Losartan, and his blood pressure has been running low consider change to a low dose of Benicar ar discharge if tolerated so that he can be on an ARB- this may have to be done by his Primary Care physician * Pre-diabetes- will start Metformin back at discharge. * Anticipate discharge home tomorrow
--- NOTE | 2017-09-03 13:58 | PRG ---
DATE OF SERVICE: 09/03/2017 SUBJECTIVE: This morning, he is better, less shortness of breath, less cough. OBJECTIVE: VITAL SIGNS: Sats are 94 on room air, respirations 17, temperature 99.1, blood pressure 108/73. CHEST: Minimal rhonchi. CARDIAC: Normal S1, S2, no gallops. ABDOMEN: Soft, no masses. IMPRESSION: 1. Bronchitis, laryngitis, status post coronary artery bypass graft. 2. Low-grade fever. PLAN: Continue PT and supportive care. We will follow.
--- NOTE | 2017-09-03 16:20 | PDOC.CTH ---
Cardiology Progress Note - Subjective He is doing better. Pain better controlled. He has walked with PT. He has had 3 BM's today. - Objective Vital Signs Temp Pulse Resp BP Pulse Ox 09/03/17 12:00 98.9 F 90 18 105/65 95 09/03/17 07:40 99.1 F 92 17 94 L 09/03/17 07:38 99.1 F 92 17 108/73 94 L Admit Weight 183 lb 13.848 oz Weight 193 lb 14.4 oz 09/02/17 09/03/17 09/04/17 06:59 06:59 06:59 Intake Total 2294 1180 Output Total 570 2598 Balance 1724 -1418 - Physical Examination General/Neuro: alert & oriented x3, NAD Neck: no JVD present Lungs: CTA, unlabored respirations Heart: RRR Abdomen: NT/ND Extremities: + edema B (1+) - Telemetry Telemetry Rhythm: S tach - Labs Result Diagrams: 09/01/17 04:54 09/01/17 04:54 Troponin/CKMB CK-MB (CK-2) 0.6 ng/mL (0-6.6) 08/29/17 15:01 Troponin I Less than 0.010 ng/mL (< 0.028) 08/29/17 21:22 - Assessment/Plan 1. CAD. 2. S/P CABG PLAN: - Cannot add ACEI/ARB due to borderline BP. - Continue ASA/statin. - Increase PT as tolerated.
[2017-09-03] MEDS: Atorvastatin Calcium 40 MG TAB PO SCH (20:32)
[2017-09-03] MEDS: Tamsulosin HCl 0.4 MG CAP PO SCH (20:33)
[2017-09-04 08:51] VITALS: BP 127/75; TEMP 98.5
[2017-09-04] MEDS: Metoprolol Tartrate 25 MG TAB PO SCH (08:52)
[2017-09-04] MEDS: Famotidine 20 MG TAB PO SCH (08:52)
[2017-09-04] MEDS: FLUoxetine HCl 20 MG CAP PO SCH (08:52)
[2017-09-04] MEDS: Aspirin 325 mg Enteric Coated Tablet PO SCH (08:52)
--- NOTE | 2017-09-04 08:55 | DIS ---
DATE OF ADMISSION: 08/29/2017 DATE OF DISCHARGE: 09/04/2017 HOSPITAL COURSE: This is a 57-year-old gentleman who presented with a weak voice and chest pain. Ca rdiac enzymes were negative and stress test did not show any localized area of abnormality; however, his TDI was abnormal. He was taken to the labor trainer where he was found to have normal left coronary s ystem. On engaging the right coronary artery, he developed a dissection at the origin of that vessel , which could not be recannulated and he was emergently taken to the operating room where he underwen t a single vessel bypass to the distal right coronary artery. Postoperative course was relatively un remarkable and he will be discharged home today on metoprolol 25 mg b.i.d., atorvastatin 40 a day, as pirin 1 a day. He will stop his losartan and HCTZ that he was taking at home and resume his metformi n 500 a day, Protonix 40 a day, Prozac 40 a day, pramipexole 4 mg at bedtime. Discharge and follow u p instructions have been given.
--- NOTE | 2017-09-04 09:25 | PRG ---
DATE OF SERVICE: 09/04/2016 Mr. Cortez is doing well. He states he is ambulating without any issues or concerns. PHYSICAL EXAMINATION: VITAL SIGNS: Blood pressure 127/75, pulse 96, temperature 98.5. LUNGS: Clear to auscultation. CARDIAC: Regular rate and rhythm. ABDOMEN: Soft, nontender, nondistended. EXTREMITIES: No edema. PERTINENT LABORATORY DATA: None today. IMPRESSION: 1. Acute coronary dissection. 2. Status post bypass surgery. RECOMMENDATIONS: Mr. Cortez is currently doing well. From my standpoint, would be okay for discha rge. Would continue atorvastatin in addition to aspirin. Would recommend low dose of beta judy t herapy. Otherwise, from my standpoint I have no further recommendations.
--- NOTE | 2017-09-04 12:33 | DIS ---
DATE OF ADMISSION: 08/29/2017 DATE OF DISCHARGE: 09/04/2017 DISCHARGE DISPOSITION: Home. PRIMARY DISCHARGE DIAGNOSES: 1. Acute coronary syndrome. 2. Right coronary artery dissection. 3. Hypertension. 4. Prediabetes. 5. Dyslipidemia. DISCHARGE MEDICATIONS: Include metoprolol 25 mg twice a day, Protonix 40 mg daily, pramipexole 4 mg at bedtime, metformin 500 mg daily, Prozac 40 mg daily, vitamin B12 2500 mcg daily, Lipitor 40 mg at bedtime, aspirin 325 mg daily. Please note that the patient was on losartan at 100 mg a day. This w as held, because his blood pressure was on the lower side and this can be rechecked at a later date a nd potentially restarted possibly at a lower dose in the future. PROCEDURES DONE DURING ADMISSION: The patient had an echocardiogram in which the ejection fraction w as estimated at 50%-55%. There was some right ventricular global systolic function, moderately reduc ed RV function. The patient had a nuclear stress test, which was negative for reversible ischemia, b ut did demonstrate an elevated TID ratio of 1.7. The patient had a cardiac catheterization in which a dissection of the right coronary artery was found and following this he had an emergent bypass surg kirby to the right coronary artery. CODE STATUS: FULL CODE. ALLERGIES: CODEINE. HOSPITAL COURSE: Mr. Cortez is a pleasant 57-year-old gentleman, who presented to the emergency ro om with complaints of chest pain, which was radiating into his neck. He also had some dysphonia asso ciated with it as well. He was brought in and ruled out and underwent a nuclear stress test, in whic h he had an elevated TID ratio. For this reason, Cardiology was consulted. He underwent cardiac cat heterization. A right coronary artery dissection was found. He underwent bypass urgently for the co ronary artery dissection. He had an uneventful postoperative course and was subsequently discharged home. He was taken off of losartan as metoprolol was added; however, this can be restarted at the di scretion of his primary care physician should his blood pressures start to trend upward and he is to follow up with his primary care physician in 1-2 weeks and also with Cardiology as instructed.
== END 2017-09-04 10:59 | disposition home or self-care (01) | DRG 233 ==
LOC: ERS 14:34 → 2SW 17:44 → OBSVTOIN 17:44 → CCU 08-30 18:27 → 2NO 09-01 22:27
PROVIDERS: ADMIT Internal Medicine; ATTEND Internal Medicine
PROC: 0210093 Bypass Coronary Artery, One Artery from Coronary Artery with Autologous Venous Tissue, Open Approach (ICD-10-PCS; principal; 2017-08-30)
PROC: 4A023N7 Measurement of Cardiac Sampling and Pressure, Left Heart, Percutaneous Approach (ICD-10-PCS; 2017-08-30)
PROC: 06BQ4ZZ Excision of Left Saphenous Vein, Percutaneous Endoscopic Approach (ICD-10-PCS; 2017-08-30)
PROC: B2111ZZ Fluoroscopy of Multiple Coronary Arteries using Low Osmolar Contrast (ICD-10-PCS; 2017-08-30)
PROC: B2151ZZ Fluoroscopy of Left Heart using Low Osmolar Contrast (ICD-10-PCS; 2017-08-30)
DX: I25.42 Coronary artery dissection (principal); J96.01 Acute respiratory failure with hypoxia; I24.9 Acute ischemic heart disease, unspecified; I10 Essential (primary) hypertension; E78.5 Hyperlipidemia, unspecified; Z79.82 Long term (current) use of aspirin; E11.9 Type 2 diabetes mellitus without complications; Z79.84 Long term (current) use of oral hypoglycemic drugs; J40 Bronchitis, not specified as acute or chronic; J04.0 Acute laryngitis
CPT/HCPCS: 36415; 36416; 71045; 76942; 78452; 80048; 80053; 80061; 82550; 82553; 82805; 84484; 85025; 85610; 85730; 86850; 86900; 86901; 93005; 93010; 93017; 93306; 93458; 93798; 94002; 94003; 94150; 94760; 99152; 99153; A9500; C1769; C1887; J0153; J0461; J1265; J1644; J1815; J1885; J2001; J2250; J2270; J2550; J2704; J2720; J3010; J3370; J3475; J3480; J7050; P9045; Q0162; S0017

== ENCOUNTER 2017-09-05 21:04 | Inpatient (IN) | payer BC ==
[2017-09-05 21:30] LABS: #Basophils 0.1 thou/uL (0.0-0.2); #Eosinphils 0.2 thou/uL (0.0-0.7); #Lymphocytes 1.1 thou/uL (1.20-3.40); #Monocytes 0.5 thou/uL (0.11-0.59); #Neutrophils 7.7 thou/uL (1.40-6.50); %Basophils 0.5 % (0.0-1.0); %Eosinophils 1.6 % (0.0-10.0); %Lymphocytes 11.2 % (21.0-51.0); %Monocytes 5.4 % (0.0-10.0); %Neutrophils 81.2 % (42.0-75.0); Hemoglobin 10.1 g/dL (14.0-18.0); Mean Corpuscular HGB CONC 33.4 g/dL (32.0-36.0); Mean Corpuscular Hemoglobin 30.3 pg (27.0-31.0); Mean Corpuscular Volume 90.7 fl (80.0-94.0); Mean Platelet Volume 7.8 fL (7.4-10.4); Platelet Count 260 thou/uL (130-400); RBC Distribution Width 12.9 % (11.5-14.5); Red Blood Cell (RBC) Count 3.34 mill/uL (4.70-6.10); White Blood Cell (WBC) Count 9.5 thou/uL (4.8-10.8)
--- NOTE | 2017-09-05 21:44 | RAD ---
PORTABLE CHEST: 09/05/17 COMPARISON: 09/01/17 study. HISTORY: Fever. Heart size is borderline. Postop sternotomy change. There is bibasilar atelectatic lung changes seen. No confluent infiltrative process noted. No signs of failure. IMPRESSION: Bibasilar atelectasis. POS: [facility]
[2017-09-05 21:48] LABS: Anion Gap 15 mmol/L (10-20); BUN (Urea Nitrogen) 16 mg/dL (8.4-25.7); Calc. Creatinine Clearance 0 mL/min (70-130); Calcium 9.3 mg/dL (7.8-10.44); Carbon Dioxide 24 mmol/L (22-29); Chloride 105 mmol/L (98-107); Estimated GFR-MDRD 80; Glucose 116 mg/dL (70-105); Potassium 4.2 mmol/L (3.5-5.1); Sodium 140 mmol/L (136-145)
[2017-09-05 21:55] LABS: CKMB 0.5 ng/mL (0-6.6)
[2017-09-05 22:03] LABS: Troponin I 5.609 ng/mL (< 0.028)
[2017-09-05 22:35] LABS: Bilirubin Negative (Negative); Blood, Urine Negative (Negative); Clarity CLEAR (Clear); Glucose, Urine (Dipstick) Negative (Negative); Leukocyte Negative (Negative); Nitrite Negative (Negative); Protein, Urine (Dipstick) Negative (Neg-Trace); Specific Gravity, Urine 1.019 (1.002-1.036); pH, Urine 7.5 (5.0-9.0)
[2017-09-05] MEDS ORDERED: Cefepime 2 GM/10 ML SYR ONE (22:47)
[2017-09-05] MEDS ORDERED: Vancomycin HCl 1.5 GM in Sodium Chloride 0.9% 250 ML 300 ML IVPB SCH (23:00)
[2017-09-05] MEDS ORDERED: Acetaminophen 500 MG TAB ONE (23:35)
[2017-09-06] MEDS ORDERED: traMADol HCl 50 MG TAB PO PRN (00:28)
[2017-09-06] MEDS ORDERED: Dextrose 5% in Water 1,000 ML IV PRN (00:29)
[2017-09-06] MEDS ORDERED: Insulin Regular 300 UNITS/3 ML VIAL SC PRN (00:29)
[2017-09-06] MEDS ORDERED: Dextrose 50% Abboject 50 ML SYRINGE SLOW IVP PRN (00:29)
[2017-09-06] MEDS ORDERED: Sodium Chloride 0.9% 1,000 ML IV SCH (00:30)
[2017-09-06 00:47] VITALS: BMI 26.7
[2017-09-06] MEDS ORDERED: VANCOMYCIN/ RENALLY ADJUST ANTIBIOTICS IVPB PRN (01:03)
[2017-09-06 01:21] LABS: Troponin I 6.059 ng/mL (< 0.028)
--- NOTE | 2017-09-06 02:34 | CON ---
DATE OF CONSULTATION: 09/06/2017 HISTORY OF PRESENT ILLNESS: I was called from the emergency department with Mr. Cortez arriving after being discharged home yesterday. He underwent emergency coronary artery bypass grafting x1 with a saphenous vein to the posterior descending artery for an acute dissection in the lab aide. He had no rhythm disturbances postoperatively, he had no fever postoperatively. He was discharged to home and came back to the emergency department with temperature to 103 and orally in the emergency department. He has had chills and rigors at home. He has had no dysuria. He has had no cough. He has had no drainage from his incisions. Cultures have been taken. He has been started on vancomycin and cefepime in the emergency department and admitted for further workup. PAST MEDICAL HISTORY: 1. Diabetes mellitus. 2. Hypertension. 3. Hyperlipidemia. 4. Acute right coronary dissection with coronary artery bypass grafting as above. PAST SURGICAL HISTORY: As above. CURRENT MEDICATIONS: 1. Metformin 500 mg every day. 2. Pramipexole 4 mg at bedtime. 3. Protonix 40 mg every day. 4. Lopressor 25 mg b.i.d. 5. Prozac 40 mg every day. 6. Lipitor 40 mg at bedtime. 7. Aspirin 325 mg every day. ALLERGIES: CODEINE. PHYSICAL EXAMINATION: GENERAL: Well-developed, well-nourished man resting comfortably. VITAL SIGNS: Current temperature is 101, pulse is 80 and regular, blood pressure is 128/76. HEENT: Sclerae nonicteric. NECK: Supple without adenopathy. LUNGS: His chest is clear bilaterally - chest x-ray shows no pleural effusions and sternal wires to be intact. Sternal incision is clean and dry. There is no drainage, erythema, or induration. ABDOMEN: Soft and nontender. EXTREMITIES: There is no edema. Left leg incisions are again clean and dry with no drainage. There is minimal ecchymoses around each incision. There is no erythema or induration. There is no overt tenderness around any of the incisions. WBC normal ASSESSMENT AND PLAN: Postoperative fever. Patient will be admitted. Continue with his cardiac rehabilitation while he is here in the hospital, pushes pulmonary toilet. Urinalysis is clear. His chest x-ray is clear. Blood cultures have been taken. He has been started on vancomycin and cefepime. [facility]
[2017-09-06 04:44] LABS: Critical Call Chem Troponin I RESULT DECREASING
[2017-09-06] MEDS ORDERED: Senokot 8.6 MG TAB PO PRN (05:52)
[2017-09-06] MEDS ORDERED: Ondansetron HCl/PF 4 MG/2 ML Vial IVP PRN (05:52)
[2017-09-06] MEDS ORDERED: Ondansetron ODT 4 MG TAB PO PRN (05:52)
[2017-09-06] MEDS ORDERED: Calcium Carbonate 500 MG ChewTAB PO PRN (05:52)
[2017-09-06] MEDS ORDERED: Labetalol HCl 100 MG/20 ML VIAL SLOW IVP PRN (05:54)
--- NOTE | 2017-09-06 06:18 | HP ---
DATE OF ADMISSION: 09/05/2017 PRIMARY CARE PHYSICIAN: Loyd Pedraza MD PRIMARY CARDIOVASCULAR: Eugene Navarro MD CHIEF COMPLAINT: Fever. HISTORY OF PRESENT ILLNESS: The patient is a 57-year-old male with recent CABG presented to the emergency room with new onset of fever and chills. The patient was discharged from this facility yesterday. He had intermittent chills with temperature of 99 initially. Earlier today, his temperature was 102. He denies any diarrhea, dysuria, hematuria, urgency, nausea, or vomiting. He had some tightening in his throat. He denies any recent travel or sick contacts. No drainage from the wounds reported. In the emergency room, his initial vital signs showed temperature of 103.1 with respiration of 16, pulse rate of 99, blood pressure of 197/94 with O2 saturation 94% on room air. After blood cultures, he received vancomycin and cefepime. PAST MEDICAL HISTORY: 1. Coronary artery dissection requiring emergent CABG x 1, last week. 2. Hypertension. 3. Dyslipidemia. 4. Diabetes mellitus type 2. 5. Restless leg syndrome. PAST SURGICAL HISTORY: 1. Some surgical intervention around the vocal cord for dysphonia. 2. Recent CABG. 3. Cardiac catheterization. ALLERGIES: The patient is allergic to CODEINE. CURRENT HOME MEDICATIONS: Aspirin 325 mg daily, Lipitor 40 mg at bedtime, vitamin B12 daily, Prozac 40 mg daily, metformin 500 mg daily, Lopressor 25 mg b.i.d., Protonix 40 mg daily, Mirapex at bedtime. SOCIAL HISTORY: Patient currently lives at home. He has three adopted children. He works at [employer]. He is . Drinks socially. No tobacco use. He is FULL CODE. FAMILY HISTORY: Positive for hypertension and diabetes in mother. Heart disease in father. REVIEW OF SYSTEMS: The following complete review of systems was negative, unless otherwise mentioned in the HPI or below: Constitutional: Weight loss or gain, ability to conduct usual activities. Skin: Rash, itching. Eyes: Double vision, pain. ENT/Mouth: Nose bleeding, neck stiffness, pain, tenderness. Cardiovascular: Palpitations, dyspnea on exertion, orthopnea. Respiratory: Shortness of breath, wheezing, cough, hemoptysis, fever or night sweats. Gastrointestinal: Poor appetite, abdominal pain, heartburn, nausea, vomiting, constipation, or diarrhea. Genitourinary: Urgency, frequency, dysuria, nocturia. Musculoskeletal: Pain, swelling. Neurologic/Psychiatric: Anxiety, depression. Allergy/Immunologic: Skin rash, bleeding tendency. PHYSICAL EXAMINATION: VITAL SIGNS: As discussed above. GENERAL: A 57-year-old male in no significant distress. HEENT: Atraumatic, normocephalic. Sclerae are anicteric. Moist mucous membranes. No oral lesion. NECK: Supple. No JVD, no carotid bruit. LUNGS: Clear to auscultation bilaterally. HEART: S1, S2 present. Regular rate and rhythm. No rubs or gallops. Well healing scar from recent CABG. ABDOMEN: Soft, nontender, bowel sounds present. No rebound or guarding. EXTREMITIES: No edema or calf tenderness. NEUROLOGIC: Grossly nonfocal. Moves all four extremities. PSYCHIATRY: Alert, awake, oriented x3. SKIN: Warm and dry. LYMPH NODES: No palpable lymph nodes in the neck. PERIPHERAL VASCULAR: Radial pulses palpable bilaterally. MUSCULOSKELETAL: No joint swelling or tenderness. LABORATORY AND X-RAY FINDINGS: CBC showed WBC 9.5 with hemoglobin 10.1, hematocrit 30.3, platelet 260,000. Troponin was 5.6 with normal CK-MB. BUN 16 , creatinine 0.97. Urinalysis was negative. Chest x-ray by my review was negative for infiltrate, it showed bibasilar atelectasis. IMPRESSION AND PLAN: 1. Fever and chills. Etiology unclear at this time. We will continue empiric antibiotics. Cultures have been sent. 2. Recent coronary artery bypass graft. We will continue aspirin, beta blockers, and statins. 3. Restless leg syndrome. We will continue Mirapex. 4. Gastroesophageal reflux disease. We will continue Protonix. 5. Diabetes mellitus type 2. We will continue metformin. 6. Depression. Patient denies any suicidal ideation. We will continue Prozac. 7. Dyslipidemia. Continue statins. 8. CODEINE allergy. 9. Chronic kidney disease stage 2. 10. Elevated troponins, probably secondary to recent coronary artery bypass graft. Plan of care was discussed with the patient in detail. He stated understanding. [facility]
[2017-09-06] MEDS: Metoprolol Tartrate 25 MG TAB PO SCH ×2 (08:52→19:23)
[2017-09-06] MEDS: Aspirin 325 mg Enteric Coated Tablet PO SCH (08:52)
[2017-09-06] MEDS: STERILE WATER SLOW IVP SCH ×2 (08:52→21:03)
[2017-09-06] MEDS: FLUoxetine HCl 20 MG CAP PO SCH (08:52)
[2017-09-06] MEDS: CEFEPIME SLOW IVP SCH ×2 (08:52→21:03)
[2017-09-06] MEDS: metFORMIN 500 MG TAB PO SCH (08:53)
[2017-09-06] MEDS: Docusate 100 MG CAP PO SCH ×2 (08:53→19:23)
[2017-09-06] MEDS ORDERED: Budesonide 0.25 MG/2 ML NEB ONE (11:01)
[2017-09-06] MEDS: Vancomycin HCl 1.5 GM in Sodium Chloride 0.9% 250 ML 300 ML IVPB SCH ×2 (11:06→23:12)
[2017-09-06] MEDS: Acetaminophen 325 MG TAB PO PRN ×2 (11:13→19:22)
[2017-09-06] MEDS: Pramipexole Di-HCl 0.125 MG TAB PO SCH (19:22)
[2017-09-06] MEDS: Atorvastatin Calcium 40 MG TAB PO SCH (19:22)
[2017-09-06] MEDS ORDERED: Ibuprofen 200 MG TAB PO PRN (22:11)
[2017-09-07 04:58] LABS: #Eosinphils 0.2 thou/uL (0.0-0.7); #Lymphocytes 1.2 thou/uL (1.20-3.40); #Monocytes 0.6 thou/uL (0.11-0.59); #Neutrophils 4.8 thou/uL (1.40-6.50); %Basophils 0.7 % (0.0-1.0); %Eosinophils 3.1 % (0.0-10.0); %Lymphocytes 17.1 % (21.0-51.0); %Monocytes 9.3 % (0.0-10.0); %Neutrophils 69.8 % (42.0-75.0); Hemoglobin 8.5 g/dL (14.0-18.0); Mean Corpuscular HGB CONC 33.1 g/dL (32.0-36.0); Mean Corpuscular Hemoglobin 30.2 pg (27.0-31.0); Mean Corpuscular Volume 91.4 fl (80.0-94.0); Mean Platelet Volume 8.1 fL (7.4-10.4); Platelet Count 189 thou/uL (130-400); White Blood Cell (WBC) Count 6.9 thou/uL (4.8-10.8)
[2017-09-07 05:16] LABS: Anion Gap 11 mmol/L (10-20); BUN (Urea Nitrogen) 12 mg/dL (8.4-25.7); Calc. Creatinine Clearance 124 mL/min (70-130); Calcium 8.5 mg/dL (7.8-10.44); Carbon Dioxide 23 mmol/L (22-29); Chloride 107 mmol/L (98-107); Estimated GFR-MDRD Greater than 90; Glucose 104 mg/dL (70-105); Potassium 4.2 mmol/L (3.5-5.1); Sodium 137 mmol/L (136-145)
--- NOTE | 2017-09-07 08:42 | RAD ---
CHEST 2 VIEWS: HISTORY: Fever. Heart surgery. Followup. COMPARISON: 09/05/17. FINDINGS: Cardiac silhouette is magnified and upper limits of normal in size. Pulmonary vasculature are unrema rkable. Mediastinum midline with postoperative changes. Parenchymal opacity at the lung bases on th e previous study has resolved. A small amount of pleural fluid remains. IMPRESSION: Small amount of residual bilateral pleural fluid. Improved aeration of the lung bases. No new abnor malities are apparent. POS: [facility]
[2017-09-07] MEDS: CEFEPIME SLOW IVP SCH ×2 (08:50→21:01)
[2017-09-07] MEDS: Aspirin 325 mg Enteric Coated Tablet PO SCH (08:50)
[2017-09-07] MEDS: STERILE WATER SLOW IVP SCH ×2 (08:50→21:01)
[2017-09-07] MEDS: Docusate 100 MG CAP PO SCH ×2 (08:50→21:01)
[2017-09-07] MEDS: metFORMIN 500 MG TAB PO SCH (08:50)
[2017-09-07] MEDS: FLUoxetine HCl 20 MG CAP PO SCH (08:50)
[2017-09-07] MEDS: Metoprolol Tartrate 25 MG TAB PO SCH ×2 (08:50→21:02)
[2017-09-07 10:43] LABS: Vancomycin, Trough 11.9 ug/mL
--- NOTE | 2017-09-07 10:49 | PDOC.PN ---
- Subjective Encounter Start Date: 09/07/17 Encounter Start Time: 08:00 Pt seen for followup re: fever. Had fever last two nights. Denies chest pain, shortness of breath, fevers or chills. - Objective Resuscitation Status: Resuscitation Status FULL:Full Resuscitation MAR Reviewed: Yes Vital Signs & Weight: Vital Signs (12 hours) Temp Pulse Resp BP Pulse Ox 09/07/17 07:50 98.6 F 78 16 123/81 09/07/17 03:59 98.8 F 79 13 118/78 94 L 09/07/17 00:00 99.2 F 77 18 124/86 96 Weight Weight 191 lb 9.6 oz I&O: 09/06/17 09/07/17 09/08/17 06:59 06:59 06:59 Intake Total 929 Output Total 625 1390 Balance 304 -1390 Result Diagrams: 09/08/17 03:52 09/07/17 03:58 Additional Labs: Accuchecks 09/07/17 09/06/17 09/06/17 06:17 20:45 16:22 POC Glucose 111 H 117 H 98 09/06/17 11:33 POC Glucose 124 H EKG Reviewed by me: Yes (Tele: NSR) Phys Exam - Physical Examination Constitutional: NAD HEENT: moist MMs, sclera anicteric, oral pharynx no lesions, 2+ tonsils Neck: no nodes, no JVD, supple, full ROM Respiratory: no wheezing, no rales, no rhonchi, clear to auscultation bilateral Cardiovascular: RRR, no rub S1, S2 Gastrointestinal: soft, non-tender, no distention, positive bowel sounds Neurological: moves all 4 limbs Psychiatric: normal affect, A&O x 3 Deviation from normal: surgical sites clean Dx/Plan (1) Fever Code(s): R50.9 - FEVER, UNSPECIFIED Status: Acute Comment: continue antibiotics, await cultures. Check CTA chest to r/o PE (2) NSVT (nonsustained ventricular tachycardia) Code(s): I47.2 - VENTRICULAR TACHYCARDIA Status: Acute Comment: appreciate cardiology input, await echo (3) Dyslipidemia Code(s): E78.5 - HYPERLIPIDEMIA, UNSPECIFIED Status: Chronic Comment: continue statin (4) Hypertension Code(s): I10 - ESSENTIAL (PRIMARY) HYPERTENSION Status: Chronic Comment: Monitor vital signs, titrate antihypertensives as needed (5) Coronary artery dissection Code(s): I25.42 - CORONARY ARTERY DISSECTION Status: Chronic Comment: s/p CABG - Plan * . Review of Systems - Review of Systems Constitutional: fever. negative: chills, sweats, weakness, malaise Respiratory: negative: Cough, Shortness of Breath, SOB with Excertion, Pleuritic Pain, Wheezing Cardiovascular: negative: chest pain, palpitations, orthopnea, paroxysmal nocturnal dyspnea, edema, light headedness Gastrointestinal: negative: Nausea, Vomiting, Abdominal Pain, Diarrhea, Constipation, Melena, Hematochezia Genitourinary: negative: Dysuria, Frequency, Incontinence, Hematuria, Retention Skin: negative: Rash, Lesions, Bari, Bruising - Medications/Allergies Allergies/Adverse Reactions: Allergies Allergy/AdvReac Type Severity Reaction Status Date / Time codeine Allergy Verified 09/06/17 01:08 Medications: Current Medications Acetaminophen (Tylenol) 650 mg PO Q4H PRN PRN Reason: Headache/Fever or Mild Pain Last Admin: 09/06/17 19:22 Dose: 650 mg Aspirin (Ecotrin) 325 mg PO DAILY [facility] Last Admin: 09/07/17 08:50 Dose: 325 mg Atorvastatin Calcium (Lipitor) 40 mg PO HS [facility] Last Admin: 09/06/17 19:22 Dose: 40 mg Calcium Carbonate (Tums) 1,000 mg PO Q4H PRN PRN Reason: Heartburn or Indigestion Dextrose/Water (Dextrose 50%) 25 gm SLOW IVP PRN PRN PRN Reason: Hypoglycemia Docusate Sodium (Colace) 100 mg PO BID [facility] Last Admin: 09/07/17 08:50 Dose: 100 mg Fluoxetine HCl (Prozac) 40 mg PO DAILY [facility] Last Admin: 09/07/17 08:50 Dose: 40 mg Glucagon (Glucagon) 1 mg IM PRN PRN PRN Reason: Hypoglycemia Cefepime HCl 1 gm/ Sterile (Water) 10 mls @ 120 mls/hr SLOW IVP Q12HR [facility] Last Admin: 09/07/17 08:50 Dose: 10 mls Dextrose/Water (D5w) 1,000 mls @ 0 mls/hr IV .Q0M PRN; As Directed PRN Reason: Hypoglycemia Vancomycin HCl 1.5 gm/ Sodium (Chloride) 300 mls @ 200 mls/hr IVPB 1100,2300 [facility] Last Admin: 09/06/17 23:12 Dose: 300 mls Insulin Human Regular (Humulin R) 0 units SC .MILD SLIDING SCALE PRN PRN Reason: Mild Correctional Scale Labetalol HCl (Normodyne) 10 mg SLOW IVP Q4H PRN PRN Reason: Systolic BP > 180 Metformin HCl (Glucophage) 500 mg PO QAM-WM [facility] Last Admin: 09/07/17 08:50 Dose: 500 mg Metoprolol Tartrate (Lopressor) 25 mg PO BID [facility] Last Admin: 09/07/17 08:50 Dose: 25 mg Miscellaneous Medication (Pharmacy To Dose) 1 each IVPB PRN PRN PRN Reason: Pharmacy to dose Ondansetron HCl (Zofran Odt) 4 mg PO Q6H PRN PRN Reason: Nausea/Vomiting Ondansetron HCl (Zofran) 4 mg IVP Q6H PRN PRN Reason: Nausea/Vomiting Pantoprazole Sodium (Protonix) 40 mg PO DAILY [facility] Last Admin: 09/07/17 08:50 Dose: 40 mg Pramipexole Dihydrochloride (Mirapex) 0.5 mg PO HS [facility] Last Admin: 09/06/17 19:22 Dose: 0.5 mg Senna (Senokot) 2 tab PO HSPRN PRN PRN Reason: Constipation Sodium Chloride (Flush - Normal Saline) 10 ml IVF Q12HR [facility] Last Admin: 09/07/17 08:50 Dose: 10 ml Sodium Chloride (Flush - Normal Saline) 10 ml IVF PRN PRN PRN Reason: Saline Flush Tramadol HCl (Ultram) 50 mg PO Q6H PRN PRN Reason: Pain
[2017-09-07] MEDS: Vancomycin HCl 1.5 GM in Sodium Chloride 0.9% 250 ML 300 ML IVPB SCH (11:09)
--- NOTE | 2017-09-07 17:56 | CON ---
DATE OF CONSULTATION: 09/07/2017 HISTORY OF PRESENT ILLNESS: Mr. Cortez recently returned to the hospital. He was having fevers, c hills over the last several days after discharge. He is currently afebrile and on antibiotic therapy . He also had a 9-beat run of nonsustained VT. PHYSICAL EXAMINATION: VITAL SIGNS: T-max 99.1, pulse 79, blood pressure 109/64. LUNGS: Clear to auscultation. CARDIAC: Regular rate and rhythm. ABDOMEN: Soft, nontender, nondistended. EXTREMITIES: No edema. PERTINENT LABORATORY DATA: White blood cell count 6.9, creatinine 0.81. IMPRESSION: 1. Postop fever. 2. Status post bypass surgery. 3. Nonsustained ventricular tachycardia. RECOMMENDATIONS: Most recent echo did not appear to have a normal LVEF. His right ventricle appeare d enlarged likely due to RV infarct. At this point, we would recommend repeat echo. Most recent mag nesium level is also 1.8 with a normal potassium. Continue beta judy therapy at 25 mg p.o. b.i.d. and may titrate up. Okay to follow with you.
[2017-09-07] MEDS: Vancomycin HCl 1.25 GM in Sodium Chloride 0.9% 250 ML 250 ML IVPB SCH (20:59)
[2017-09-07] MEDS: Atorvastatin Calcium 40 MG TAB PO SCH (21:01)
[2017-09-07] MEDS: Pramipexole Di-HCl 0.125 MG TAB PO SCH (21:02)
[2017-09-07] MEDS: Acetaminophen 325 MG TAB PO PRN (22:49)
[2017-09-08] MEDS: Vancomycin HCl 1.25 GM in Sodium Chloride 0.9% 250 ML 250 ML IVPB SCH ×3 (04:50→21:24)
[2017-09-08 04:59] LABS: #Basophils 0.1 thou/uL (0.0-0.2); #Eosinphils 0.2 thou/uL (0.0-0.7); #Lymphocytes 1.4 thou/uL (1.20-3.40); #Monocytes 0.8 thou/uL (0.11-0.59); #Neutrophils 5.2 thou/uL (1.40-6.50); %Basophils 0.8 % (0.0-1.0); %Eosinophils 3.2 % (0.0-10.0); %Lymphocytes 18.5 % (21.0-51.0); %Monocytes 9.9 % (0.0-10.0); %Neutrophils 67.6 % (42.0-75.0); Hemoglobin 8.2 g/dL (14.0-18.0); Mean Corpuscular HGB CONC 33.8 g/dL (32.0-36.0); Mean Corpuscular Hemoglobin 30.6 pg (27.0-31.0); Mean Corpuscular Volume 90.5 fl (80.0-94.0); Mean Platelet Volume 8.5 fL (7.4-10.4); Platelet Count 188 thou/uL (130-400); RBC Distribution Width 12.7 % (11.5-14.5); Red Blood Cell (RBC) Count 2.69 mill/uL (4.70-6.10); White Blood Cell (WBC) Count 7.8 thou/uL (4.8-10.8)
[2017-09-08] MEDS: STERILE WATER SLOW IVP SCH (09:08)
[2017-09-08] MEDS: Docusate 100 MG CAP PO SCH ×2 (09:08→21:25)
[2017-09-08] MEDS: Aspirin 325 mg Enteric Coated Tablet PO SCH (09:08)
[2017-09-08] MEDS: metFORMIN 500 MG TAB PO SCH (09:08)
[2017-09-08] MEDS: CEFEPIME SLOW IVP SCH (09:08)
[2017-09-08] MEDS: Metoprolol Tartrate 25 MG TAB PO SCH ×2 (09:09→21:25)
[2017-09-08] MEDS: FLUoxetine HCl 20 MG CAP PO SCH (09:09)
[2017-09-08 11:16] LABS: Vancomycin, Trough 18.5 ug/mL
--- NOTE | 2017-09-08 13:12 | PRG ---
DATE OF SERVICE: 09/08/2017 SUBJECTIVE: Ms. Cortez is doing well. He appears to be in good spirits. He has been ambulating. He did have one episode of low grade fever. No significant chills noted. PHYSICAL EXAMINATION: VITAL SIGNS: Blood pressure 130/77, pulse 70, temperature 98.5. LUNGS: Clear to auscultation. CARDIAC: Regular rate and rhythm. ABDOMEN: Soft, nontender and nondistended. EXTREMITIES: No edema. IMAGING: Echo pending. IMPRESSION: 1. Fever. 2. Status post bypass surgery. 3. Nonsustained ventricular tachycardia. RECOMMENDATIONS: We would recheck overall LVEF to assess LV function. He did have 9 beats of nonsus tained VT. This has not recurred. Continue beta judy therapy and antibiotic treatment.
[2017-09-08] MEDS ORDERED: Iopamidol 370 76% 100 ML VIAL ONE (13:18)
--- NOTE | 2017-09-08 14:52 | PDOC.PN ---
- Subjective Encounter Start Date: 09/08/17 Encounter Start Time: 08:00 Pt seen for followup re: fever. had fever last night also. No chest pain, shortness of breath, fevers or chills. - Objective Resuscitation Status: Resuscitation Status FULL:Full Resuscitation MAR Reviewed: Yes Vital Signs & Weight: Vital Signs (12 hours) Temp Pulse Pulse Pulse Resp BP BP 09/08/17 10:53 73 68 108/69 113/77 09/08/17 08:15 98.5 F 70 16 09/08/17 08:13 98.5 F 70 16 09/08/17 04:00 97.9 F 73 16 BP Pulse Ox Pulse Ox Pulse Ox 09/08/17 10:53 99 98 09/08/17 08:15 96 09/08/17 08:13 116/75 96 09/08/17 04:00 103/71 94 L Weight Weight 191 lb 9.6 oz I&O: 09/07/17 09/08/17 09/09/17 06:59 06:59 06:59 Intake Total 1000 Output Total 1390 2300 Balance -1390 -1300 Result Diagrams: 09/08/17 03:52 09/07/17 03:58 Additional Labs: Accuchecks 09/07/17 09/07/17 20:24 17:05 POC Glucose 118 H 111 H EKG Reviewed by me: Yes (Tele: NSR) Phys Exam - Physical Examination Constitutional: NAD HEENT: moist MMs, sclera anicteric, oral pharynx no lesions, 2+ tonsils Neck: no nodes, no JVD, supple, full ROM Respiratory: no wheezing, no rales, no rhonchi, clear to auscultation bilateral Cardiovascular: RRR, no rub S1, S2 Gastrointestinal: soft, non-tender, no distention, positive bowel sounds Neurological: moves all 4 limbs Psychiatric: normal affect, A&O x 3 Dx/Plan (1) Fever Code(s): R50.9 - FEVER, UNSPECIFIED Status: Acute Comment: continue antibiotics, await cultures. Check CTA chest to r/o PE (2) NSVT (nonsustained ventricular tachycardia) Code(s): I47.2 - VENTRICULAR TACHYCARDIA Status: Acute Comment: appreciate cardiology input, await echo (3) Dyslipidemia Code(s): E78.5 - HYPERLIPIDEMIA, UNSPECIFIED Status: Chronic Comment: continue statin (4) Hypertension Code(s): I10 - ESSENTIAL (PRIMARY) HYPERTENSION Status: Chronic Comment: Monitor vital signs, titrate antihypertensives as needed (5) Coronary artery dissection Code(s): I25.42 - CORONARY ARTERY DISSECTION Status: Chronic Comment: s/p CABG - Plan * . Review of Systems - Review of Systems Constitutional: negative: fever, chills, sweats, weakness, malaise Respiratory: negative: Cough, Shortness of Breath, SOB with Excertion, Pleuritic Pain, Wheezing Cardiovascular: negative: chest pain, palpitations, orthopnea, paroxysmal nocturnal dyspnea, edema, light headedness Gastrointestinal: negative: Nausea, Vomiting, Abdominal Pain, Diarrhea, Constipation, Melena, Hematochezia Genitourinary: negative: Dysuria, Frequency, Incontinence, Hematuria, Retention - Medications/Allergies Allergies/Adverse Reactions: Allergies Allergy/AdvReac Type Severity Reaction Status Date / Time codeine Allergy Verified 09/06/17 01:08 Medications: Current Medications Acetaminophen (Tylenol) 650 mg PO Q4H PRN PRN Reason: Headache/Fever or Mild Pain Last Admin: 09/07/17 22:49 Dose: 650 mg Aspirin (Ecotrin) 325 mg PO DAILY [facility] Last Admin: 09/08/17 09:08 Dose: 325 mg Atorvastatin Calcium (Lipitor) 40 mg PO HS [facility] Last Admin: 09/07/17 21:01 Dose: 40 mg Calcium Carbonate (Tums) 1,000 mg PO Q4H PRN PRN Reason: Heartburn or Indigestion Dextrose/Water (Dextrose 50%) 25 gm SLOW IVP PRN PRN PRN Reason: Hypoglycemia Docusate Sodium (Colace) 100 mg PO BID [facility] Last Admin: 09/08/17 09:08 Dose: 100 mg Fluoxetine HCl (Prozac) 40 mg PO DAILY [facility] Last Admin: 09/08/17 09:09 Dose: 40 mg Glucagon (Glucagon) 1 mg IM PRN PRN PRN Reason: Hypoglycemia Dextrose/Water (D5w) 1,000 mls @ 0 mls/hr IV .Q0M PRN; As Directed PRN Reason: Hypoglycemia Vancomycin HCl 1.25 gm/ Sodium (Chloride) 250 mls @ 166.667 mls/hr IVPB 0400, 1200,2000 [facility] Last Admin: 09/08/17 13:52 Dose: 250 mls Cefepime HCl 1 gm/ Sodium (Chloride) 100 mls @ 200 mls/hr IVPB Q12HR [facility] Labetalol HCl (Normodyne) 10 mg SLOW IVP Q4H PRN PRN Reason: Systolic BP > 180 Metformin HCl (Glucophage) 500 mg PO QAM-WM [facility] Last Admin: 09/08/17 09:08 Dose: 500 mg Metoprolol Tartrate (Lopressor) 25 mg PO BID [facility] Last Admin: 09/08/17 09:09 Dose: 25 mg Miscellaneous Medication (Pharmacy To Dose) 1 each IVPB PRN PRN PRN Reason: Pharmacy to dose Ondansetron HCl (Zofran Odt) 4 mg PO Q6H PRN PRN Reason: Nausea/Vomiting Ondansetron HCl (Zofran) 4 mg IVP Q6H PRN PRN Reason: Nausea/Vomiting Pantoprazole Sodium (Protonix) 40 mg PO DAILY [facility] Last Admin: 09/08/17 09:09 Dose: 40 mg Pramipexole Dihydrochloride (Mirapex) 0.5 mg PO HS [facility] Last Admin: 09/07/17 21:02 Dose: 0.5 mg Senna (Senokot) 2 tab PO HSPRN PRN PRN Reason: Constipation Sodium Chloride (Flush - Normal Saline) 10 ml IVF Q12HR [facility] Last Admin: 09/08/17 09:09 Dose: 10 ml Sodium Chloride (Flush - Normal Saline) 10 ml IVF PRN PRN PRN Reason: Saline Flush Tramadol HCl (Ultram) 50 mg PO Q6H PRN PRN Reason: Pain
--- NOTE | 2017-09-08 17:10 | CT ---
CT ARTERIOGRAM CHEST WITH IV CONTRAST AND 3D MIP IMAGIN09/08/17 HISTORY: Chest pain. Cough. Recent surgery. FINDINGS: There is a single cylindrical filling defect apparent within the right lower lobe pulmonary artery me dial and basilar segments. There is good contrast opacification of the thoracic aorta with normal bra nch of the great vessels. Postoperative changes of the mediastinum are present, including small amoun t of residual mediastinal fluid, minimal bilateral pleural fluid, and bibasilar atelectasis. IMPRESSION: 1. Right lower lobe pulmonary embolus. Low clot burden. 2. Recent postoperative changes mediastinum. Findings were called to Dr. Larson at 1626 hours. Code CR POS: SJ
--- NOTE | 2017-09-08 19:44 | CON ---
DATE OF CONSULTATION: 09/08/2017 This is Tg Izaguirre NP-C dictating for Dr. Merritt Keating. ELECTROPHYSIOLOGY CONSULTATION NOTE REFERRING PHYSICIAN: Rober Neff M.D. REASON FOR CONSULTATION: Nonsustained ventricular tachycardia. HISTORY OF PRESENT ILLNESS: Mr. Cortez is a very pleasant 57-year-old male referred to EP service for nonsustained ventricular tachycardia. He recently was hospitalized earlier in the month where he had an abnormal stress test, went to the slab worker for a diagnostic evaluation and at that time an RC A ostial dissection was found. He went for emergent single vessel bypass and a graft was placed at t he level of the PDA. He had an uneventful recovery and was discharged home on 09/05/2017. The o morning, he developed fever and chills and presented to the emergency room for reevaluation. Bl ood cultures have been sent and empiric antibiotics have been started. However, no source of fever h as been found at this time. While on monitor, he was found to have a 9-beat run of nonsustained vent ricular tachycardia which he was asymptomatic. Overall, he reports feeling a little bit weak as he r ecovers from his recent surgery and a sternotomy. He denies any heart racing, palpitations, chest pa in, pressure, syncope or near syncope. He denies any stroke-like symptoms. PAST MEDICAL HISTORY: Hypertension, dyslipidemia, type 2 diabetes, restless leg syndrome, recent RCA dissection requiring emergent single vessel bypass on 08/30/2017. ALLERGIES: CODEINE. HOME MEDICATIONS: Aspirin 325 mg daily, Lipitor 40 mg daily, vitamin B12 daily, Prozac 40 mg daily, metformin 500 mg daily, Lopressor 25 mg b.i.d., Protonix 40 mg daily, and Mirapex at bedtime. SOCIAL HISTORY: with three adopted children, lives at home. He works at [employer] in [employer] program. Negative for tobacco or illicit drug use. Occasionally drinks socially, but not exce ss. FAMILY HISTORY: Positive for hypertension and heart disease on both his maternal and paternal side. Positive for hypertension, diabetes with his mother. REVIEW OF SYSTEMS: Twelve point review of systems was conducted and is negative except that listed a franklin in the HPI. PHYSICAL EXAMINATION: VITAL SIGNS: Most recent vital signs, 98.2 degrees Fahrenheit, pulse of 70, blood pressure is 113/71 , respirations are 15, oxygen saturation is 95% on room air. GENERAL: This is a well-appearing, well-groomed and well-nourished gentleman in no acute distress. He is alert and oriented. Speech is normal in size. Affect is appropriate. HEENT: He is normocephalic, atraumatic. His sclerae are anicteric. EOMs are intact. NECK: Supple without jugular venous distention. Carotids are without bruit and the thyroid is nonpa lpable. CARDIOVASCULAR: Heart rate is irregularly irregular without murmur, rub or gallop. PMI is nondispla [place]. There is a recent sternotomy wound healing. LUNGS: Clear to auscultation bilaterally without wheezes, crackles or rhonchi. Respirations are priti n and unlabored with good bilateral excursion. ABDOMEN: Soft, nontender without palpable masses and there are positive bowel sounds noted throughou t. NEUROLOGIC: Cranial nerves II-XII grossly intact and nonfocal. LABORATORY DATA: Hematology: WBC 7.8, hemoglobin 8.2, hematocrit 24.4, platelet count 188. Synchronous Motor Assembler ry on 09/07/2017, Sodium 137, potassium 4.2, chloride 107, carbon dioxide 23, BUN is 12, creatinine i s 0.81. Urinalysis is negative. Telemetry and EKG review demonstrates normal sinus rhythm. There was a 9-beat run of nonsustained ve ntricular tachycardia which the patient was asymptomatic. IMPRESSION: 1. Nonsustained ventricular tachycardia. 2. Chronic systolic congestive heart failure with a left ventricular ejection fraction 40%-45% by re cent echocardiogram on 09/08/2017. 3. Recent myocardial infarction/single vessel coronary artery bypass graft. 4. Diabetes. 5. Hypertension. PLAN: At this time, the recommendation is to continue conservative medical therapy with beta judy s. Titrate beta judy therapy as needed and tolerated. Monitor for symptoms of recurrent arrhythm ias or heart failure and consider an ICD if there is any sustained ventricular tachycardia or if his LVEF is less than 35% three months after his bypass surgery with optimal medical management. Thank you for allowing us to participate in the care of this patient.
[2017-09-08] MEDS: Atorvastatin Calcium 40 MG TAB PO SCH (21:25)
[2017-09-08] MEDS: Pramipexole Di-HCl 0.125 MG TAB PO SCH (21:26)
[2017-09-08] MEDS: Acetaminophen 325 MG TAB PO PRN (21:31)
[2017-09-08] MEDS: Cefepime 1 GM in Sodium Chloride 0.9% 100 ML IVPB SCH (23:45)
[2017-09-09] MEDS: Vancomycin HCl 1.25 GM in Sodium Chloride 0.9% 250 ML 250 ML IVPB SCH ×3 (04:31→21:28)
[2017-09-09 04:59] LABS: #Eosinphils 0.3 thou/uL (0.0-0.7); #Lymphocytes 1.7 thou/uL (1.20-3.40); #Monocytes 0.7 thou/uL (0.11-0.59); #Neutrophils 6.6 thou/uL (1.40-6.50); %Basophils 0.2 % (0.0-1.0); %Eosinophils 3.3 % (0.0-10.0); %Lymphocytes 17.9 % (21.0-51.0); %Monocytes 7.4 % (0.0-10.0); %Neutrophils 71.3 % (42.0-75.0); Hemoglobin 8.1 g/dL (14.0-18.0); Mean Corpuscular HGB CONC 33.8 g/dL (32.0-36.0); Mean Corpuscular Hemoglobin 30.7 pg (27.0-31.0); Mean Corpuscular Volume 90.7 fl (80.0-94.0); Mean Platelet Volume 8.3 fL (7.4-10.4); Platelet Count 230 thou/uL (130-400); RBC Distribution Width 12.8 % (11.5-14.5); Red Blood Cell (RBC) Count 2.66 mill/uL (4.70-6.10); White Blood Cell (WBC) Count 9.2 thou/uL (4.8-10.8)
[2017-09-09 05:21] LABS: ALT (SGPT) 13 U/L (8-55); AST (SGOT) 14 U/L (5-34); Albumin 3.2 g/dL (3.5-5.0); Alkaline Phosphatase 62 U/L (40-150); Anion Gap 11 mmol/L (10-20); BUN (Urea Nitrogen) 11 mg/dL (8.4-25.7); Bilirubin, Direct 0.2 mg/dL (0.1-0.3); Bilirubin, Total 0.4 mg/dL (0.2-1.2); Calc. Creatinine Clearance 127 mL/min (70-130); Calcium 8.2 mg/dL (7.8-10.44); Carbon Dioxide 23 mmol/L (22-29); Chloride 108 mmol/L (98-107); Estimated GFR-MDRD Greater than 90; Glucose 98 mg/dL (70-105); Potassium 3.7 mmol/L (3.5-5.1); Protein, Total 5.5 g/dL (6.0-8.3); Sodium 138 mmol/L (136-145)
--- NOTE | 2017-09-09 08:39 | PDOC.CTH ---
<Rosalba Rivera - Last Filed: 09/09/17 13:53> Cardiology Progress Note - Subjective Feeling well, sitting up in chair at bedside. Has been ambulating in saeed. Has dry cough. Denies chest pain, acute shortness of breath. Has GALINDO with moderate exertion. Denies chills. Intermittent low-grade temps. Continues to experience generalized weakness, fatigue. - Objective Vital Signs Temp Pulse Resp BP BP Pulse Ox 09/09/17 07:51 98.9 F 71 17 96 09/09/17 07:49 98.9 F 71 17 112/77 96 09/09/17 04:00 99.0 F 70 16 108/67 99 09/09/17 00:00 99.1 F 73 18 115/70 94 L Weight 191 lb 9.6 oz 09/08/17 09/09/17 09/10/17 06:59 06:59 06:59 Intake Total 1000 Output Total 2300 Balance -1300 - Physical Examination General/Neuro: alert & oriented x3, NAD Neck: no JVD present Lungs: other: (Diminished BLL) Heart: PMI normal, RRR Abdomen: NT/ND - Telemetry Telemetry Rhythm: NSR, intermittent PVCs - Labs Result Diagrams: 09/09/17 03:54 09/09/17 03:54 Troponin/CKMB CK-MB (CK-2) 0.5 ng/mL (0-6.6) 09/05/17 21:26 Troponin I 5.250 ng/mL (< 0.028) H* 09/06/17 03:38 - Assessment/Plan 1.Fever-intermittent low-grade temp, bld cx negative at 48 hours. Continue antibiotics. 2.CAD, S/P CABG-incisions s/ S&S of infection, cont ECASA, statin 3.Nonsustained VT-9 beats, no recurrence. Echo 09/08 demonstrated EF 40-45%. Continue conservative mgmt with BB therapy. Repeat echo 3 months post-CABG to evaluate EF, consider ICD. 4.PE-CTA demonstrates RLL pulm embolus, start Xarelto. 5.HTN-stable. <Ninoska Novoa - Last Filed: 09/09/17 14:29> Cardiology Progress Note - Objective Vital Signs Temp Pulse Pulse Pulse Resp BP BP 05/12/18 12:44 70 70 122/74 115/63 09/09/17 12:00 98.5 F 68 18 09/09/17 07:51 98.9 F 71 17 09/09/17 07:49 98.9 F 71 17 09/09/17 04:00 99.0 F 70 16 BP BP Pulse Ox Pulse Ox Pulse Ox 09/09/17 12:44 97 97 09/09/17 12:00 118/79 97 09/09/17 07:51 96 09/09/17 07:49 112/77 96 09/09/17 04:00 108/67 99 Weight 191 lb 9.6 oz 09/08/17 09/09/17 09/10/17 06:59 06:59 06:59 Intake Total 1000 Output Total 2300 Balance -1300 - Labs Result Diagrams: 09/09/17 03:54 09/09/17 03:54 Troponin/CKMB CK-MB (CK-2) 0.5 ng/mL (0-6.6) 09/05/17 21:26 Troponin I 5.250 ng/mL (< 0.028) H* 09/06/17 03:38 Attending Addendum - Attending Addendum Date/Time: 09/09/17 1413 I personally evaluated the patient and discussed the management with Rosalba Rivera NP I agree with the History, Examination, Assessment and Plan documented above with any addition or exceptions noted below. Patient seen, examined doing well, to start Xarelto at PE dose.
[2017-09-09] MEDS: FLUoxetine HCl 20 MG CAP PO SCH (09:01)
[2017-09-09] MEDS: Cefepime 1 GM in Sodium Chloride 0.9% 100 ML IVPB SCH ×2 (09:02→20:44)
[2017-09-09] MEDS: Docusate 100 MG CAP PO SCH ×2 (09:02→20:44)
[2017-09-09] MEDS: Aspirin 325 mg Enteric Coated Tablet PO SCH (09:02)
[2017-09-09] MEDS: metFORMIN 500 MG TAB PO SCH (09:02)
[2017-09-09] MEDS: Metoprolol Tartrate 25 MG TAB PO SCH ×2 (09:02→20:45)
[2017-09-09] MEDS: Rivaroxaban 15 MG TAB PO SCH (17:08)
--- NOTE | 2017-09-09 17:17 | PDOC.PN ---
- Subjective Encounter Start Date: 09/09/17 Encounter Start Time: 08:00 Pt seen for followup re: pulmonary embolism. Denies chest pain. Had low-grade fever last night. No nausea or vomiting. - Objective Resuscitation Status: Resuscitation Status FULL:Full Resuscitation MAR Reviewed: Yes Vital Signs & Weight: Vital Signs (12 hours) Temp Pulse Pulse Pulse Resp BP BP 09/09/17 16:00 97.8 F 73 18 09/09/17 12:44 70 70 122/74 115/63 09/09/17 12:00 98.5 F 68 18 09/09/17 07:51 98.9 F 71 17 09/09/17 07:49 98.9 F 71 17 BP Pulse Ox Pulse Ox Pulse Ox 09/09/17 16:00 113/65 95 09/09/17 12:44 97 97 09/09/17 12:00 118/79 97 09/09/17 07:51 96 09/09/17 07:49 112/77 96 Weight Weight 191 lb 9.6 oz I&O: 09/08/17 09/09/17 09/10/17 06:59 06:59 06:59 Intake Total 1000 960 Output Total 2300 1300 Balance -1300 -340 Result Diagrams: 09/09/17 03:54 09/09/17 03:54 EKG Reviewed by me: Yes (Tele: NSR) Phys Exam - Physical Examination Constitutional: NAD HEENT: moist MMs Neck: supple Respiratory: clear to auscultation bilateral Cardiovascular: RRR Gastrointestinal: soft Neurological: moves all 4 limbs Psychiatric: normal affect, A&O x 3 Dx/Plan (1) Pulmonary embolism Code(s): I26.99 - OTHER PULMONARY EMBOLISM WITHOUT ACUTE COR PULMONALE Status : Acute Comment: Discussed with CV surgery. Dr. Sethi agreeable to starting anticoagulation (recent surgery). discussed with pt re: various treatment options, risks and benefits. Pt agreeable to starting rivaroxaban. Side-effects discussed. (2) Fever Code(s): R50.9 - FEVER, UNSPECIFIED Status: Acute Comment: continue antibiotics, await cultures. Improving. (3) NSVT (nonsustained ventricular tachycardia) Code(s): I47.2 - VENTRICULAR TACHYCARDIA Status: Acute Comment: no recurrence (4) Dyslipidemia Code(s): E78.5 - HYPERLIPIDEMIA, UNSPECIFIED Status: Chronic Comment: continue statin (5) Hypertension Code(s): I10 - ESSENTIAL (PRIMARY) HYPERTENSION Status: Chronic Comment: titrate antihypertensives as needed (6) Coronary artery dissection Code(s): I25.42 - CORONARY ARTERY DISSECTION Status: Chronic Comment: s/p CABG - Plan * . Review of Systems - Review of Systems Respiratory: negative: Cough, Shortness of Breath, Hemoptysis, SOB with Excertion, Pleuritic Pain, Wheezing Cardiovascular: negative: chest pain, palpitations, orthopnea, paroxysmal nocturnal dyspnea, edema, light headedness - Medications/Allergies Allergies/Adverse Reactions: Allergies Allergy/AdvReac Type Severity Reaction Status Date / Time codeine Allergy Verified 09/06/17 01:08 Medications: Current Medications Acetaminophen (Tylenol) 650 mg PO Q4H PRN PRN Reason: Headache/Fever or Mild Pain Last Admin: 09/08/17 21:31 Dose: 650 mg Aspirin (Ecotrin) 325 mg PO DAILY [facility] Last Admin: 09/09/17 09:02 Dose: 325 mg Atorvastatin Calcium (Lipitor) 40 mg PO HS [facility] Last Admin: 09/08/17 21:25 Dose: 40 mg Calcium Carbonate (Tums) 1,000 mg PO Q4H PRN PRN Reason: Heartburn or Indigestion Dextrose/Water (Dextrose 50%) 25 gm SLOW IVP PRN PRN PRN Reason: Hypoglycemia Docusate Sodium (Colace) 100 mg PO BID [facility] Last Admin: 09/09/17 09:02 Dose: 100 mg Fluoxetine HCl (Prozac) 40 mg PO DAILY [facility] Last Admin: 09/09/17 09:01 Dose: 40 mg Glucagon (Glucagon) 1 mg IM PRN PRN PRN Reason: Hypoglycemia Dextrose/Water (D5w) 1,000 mls @ 0 mls/hr IV .Q0M PRN; As Directed PRN Reason: Hypoglycemia Vancomycin HCl 1.25 gm/ Sodium (Chloride) 250 mls @ 166.667 mls/hr IVPB 0400, 1200,2000 [facility] Last Admin: 09/09/17 11:56 Dose: 250 mls Cefepime HCl 1 gm/ Sodium (Chloride) 100 mls @ 200 mls/hr IVPB Q12HR [facility] Last Admin: 09/09/17 09:02 Dose: 100 mls Labetalol HCl (Normodyne) 10 mg SLOW IVP Q4H PRN PRN Reason: Systolic BP > 180 Metformin HCl (Glucophage) 500 mg PO QAM-[facility] Last Admin: 09/09/17 09:02 Dose: 500 mg Metoprolol Tartrate (Lopressor) 25 mg PO BID [facility] Last Admin: 09/09/17 09:02 Dose: 25 mg Miscellaneous Medication (Pharmacy To Dose) 1 each IVPB PRN PRN PRN Reason: Pharmacy to dose Ondansetron HCl (Zofran Odt) 4 mg PO Q6H PRN PRN Reason: Nausea/Vomiting Ondansetron HCl (Zofran) 4 mg IVP Q6H PRN PRN Reason: Nausea/Vomiting Pantoprazole Sodium (Protonix) 40 mg PO DAILY [facility] Last Admin: 09/09/17 09:03 Dose: 40 mg Pramipexole Dihydrochloride (Mirapex) 0.5 mg PO [facility] Last Admin: 09/08/17 21:26 Dose: 0.5 mg Rivaroxaban (Xarelto) 15 mg PO BID-[facility] Last Admin: 09/09/17 17:08 Dose: 15 mg Senna (Senokot) 2 tab PO HSPRN PRN PRN Reason: Constipation Sodium Chloride (Flush - Normal Saline) 10 ml IVF Q12HR [facility] Last Admin: 09/09/17 09:03 Dose: 10 ml Sodium Chloride (Flush - Normal Saline) 10 ml IVF PRN PRN PRN Reason: Saline Flush Tramadol HCl (Ultram) 50 mg PO Q6H PRN PRN Reason: Pain
[2017-09-09] MEDS: Pramipexole Di-HCl 0.125 MG TAB PO SCH (20:44)
[2017-09-09] MEDS: Atorvastatin Calcium 40 MG TAB PO SCH (20:45)
[2017-09-10] MEDS: Vancomycin HCl 1.25 GM in Sodium Chloride 0.9% 250 ML 250 ML IVPB SCH ×3 (03:36→20:53)
[2017-09-10 04:57] LABS: #Basophils 0.1 thou/uL (0.0-0.2); #Eosinphils 0.3 thou/uL (0.0-0.7); #Lymphocytes 1.6 thou/uL (1.20-3.40); #Monocytes 0.7 thou/uL (0.11-0.59); #Neutrophils 6.5 thou/uL (1.40-6.50); %Basophils 0.6 % (0.0-1.0); %Eosinophils 3.4 % (0.0-10.0); %Lymphocytes 17.7 % (21.0-51.0); %Monocytes 7.6 % (0.0-10.0); %Neutrophils 70.7 % (42.0-75.0); Hemoglobin 7.8 g/dL (14.0-18.0); Mean Corpuscular HGB CONC 33.2 g/dL (32.0-36.0); Mean Corpuscular Hemoglobin 30.2 pg (27.0-31.0); Mean Platelet Volume 8.2 fL (7.4-10.4); Platelet Count 231 thou/uL (130-400); Red Blood Cell (RBC) Count 2.56 mill/uL (4.70-6.10); White Blood Cell (WBC) Count 9.1 thou/uL (4.8-10.8)
[2017-09-10 05:13] LABS: Anion Gap 11 mmol/L (10-20); BUN (Urea Nitrogen) 11 mg/dL (8.4-25.7); Calc. Creatinine Clearance 127 mL/min (70-130); Calcium 8.3 mg/dL (7.8-10.44); Carbon Dioxide 22 mmol/L (22-29); Chloride 110 mmol/L (98-107); Estimated GFR-MDRD Greater than 90; Glucose 134 mg/dL (70-105); Potassium 3.9 mmol/L (3.5-5.1); Sodium 139 mmol/L (136-145)
--- NOTE | 2017-09-10 08:26 | PDOC.CTH ---
Cardiology Progress Note - Subjective Awake, out of bed to bathroom. Denies chest pain, shortness of breath, nausea/ vomiting. Complains of dry cough, occasional incisional pain with movement. Low-grade temps overnight. No other overnight events, no cardiac events. - Objective Vital Signs Temp Pulse Resp BP 09/10/17 04:00 99.1 F 69 16 110/66 Weight 191 lb 9.6 oz 09/09/17 09/10/17 09/11/17 06:59 06:59 06:59 Intake Total 1310 Output Total 1300 Balance 10 - Physical Examination General/Neuro: alert & oriented x3, NAD Neck: no JVD present Lungs: CTA, unlabored respirations Heart: RRR Abdomen: NT/ND Other PE findings: MS incision C/D, no erythema,drainage. - Telemetry Telemetry Rhythm: SR70s - Labs Result Diagrams: 09/10/17 03:57 09/10/17 03:57 Troponin/CKMB CK-MB (CK-2) 0.5 ng/mL (0-6.6) 09/05/17 21:26 Troponin I 5.250 ng/mL (< 0.028) H* 09/06/17 03:38 - Assessment/Plan 1.Fever-intermittent low-grade temp, bld cx negative at 48 hours. Echo 09/08 showed no vegetations. Continue antibiotics. 2.CAD, S/P CABG-incisions s/ S&S of infection, cont ECASA, statin 3.Nonsustained VT-9 beats, no recurrence. Echo 09/08 demonstrated EF 40-45%. Continue conservative mgmt with BB therapy. Repeat echo 3 months post-CABG to evaluate EF, consider ICD. 4.PE-CTA demonstrates RLL pulm embolus, on Xarelto. 5.HTN-stable.
[2017-09-10] MEDS: Docusate 100 MG CAP PO SCH ×2 (09:39→20:52)
[2017-09-10] MEDS: Metoprolol Tartrate 25 MG TAB PO SCH ×2 (09:40→20:51)
[2017-09-10] MEDS: Rivaroxaban 15 MG TAB PO SCH ×2 (09:40→18:46)
[2017-09-10] MEDS: metFORMIN 500 MG TAB PO SCH (09:40)
[2017-09-10] MEDS: Aspirin 325 mg Enteric Coated Tablet PO SCH (09:40)
[2017-09-10] MEDS: Cefepime 1 GM in Sodium Chloride 0.9% 100 ML IVPB SCH ×2 (09:40→22:47)
[2017-09-10] MEDS: FLUoxetine HCl 20 MG CAP PO SCH (09:40)
--- NOTE | 2017-09-10 10:13 | PDOC.PN ---
- Subjective Encounter Start Date: 09/10/17 Encounter Start Time: 07:40 Pt seen for followup re: pulmonary embolism. Denies chest pain, shortness of breath, fevers or chills. No nausea or vomiting. - Objective Resuscitation Status: Resuscitation Status FULL:Full Resuscitation MAR Reviewed: Yes Vital Signs & Weight: Vital Signs (12 hours) Temp Pulse Resp BP BP Pulse Ox 09/10/17 08:00 97.8 F 75 18 113/79 94 L 09/10/17 04:00 99.1 F 69 16 110/66 Weight Weight 191 lb 9.6 oz I&O: 09/09/17 09/10/17 09/11/17 06:59 06:59 06:59 Intake Total 1310 Output Total 1300 Balance 10 Result Diagrams: 09/10/17 03:57 09/10/17 03:57 EKG Reviewed by me: Yes (Tele: NSR) Phys Exam - Physical Examination Constitutional: NAD HEENT: moist MMs Neck: supple Respiratory: clear to auscultation bilateral Cardiovascular: RRR Gastrointestinal: soft Neurological: moves all 4 limbs Psychiatric: normal affect Dx/Plan (1) Pulmonary embolism Code(s): I26.99 - OTHER PULMONARY EMBOLISM WITHOUT ACUTE COR PULMONALE Status : Acute Comment: continue rivaroxaban (2) Fever Code(s): R50.9 - FEVER, UNSPECIFIED Status: Acute Comment: continue antibiotics, await cultures. Continues to have low-grade fevers. (3) NSVT (nonsustained ventricular tachycardia) Code(s): I47.2 - VENTRICULAR TACHYCARDIA Status: Acute Comment: no recurrence, appreciate cardiology input (4) Dyslipidemia Code(s): E78.5 - HYPERLIPIDEMIA, UNSPECIFIED Status: Chronic Comment: continue statin (5) Hypertension Code(s): I10 - ESSENTIAL (PRIMARY) HYPERTENSION Status: Chronic Comment: stable (6) Coronary artery dissection Code(s): I25.42 - CORONARY ARTERY DISSECTION Status: Chronic Comment: s/p CABG - Plan * . Review of Systems - Review of Systems Constitutional: fever. negative: chills, sweats, weakness, malaise Cardiovascular: negative: chest pain, palpitations, orthopnea, paroxysmal nocturnal dyspnea, edema, light headedness - Medications/Allergies Allergies/Adverse Reactions: Allergies Allergy/AdvReac Type Severity Reaction Status Date / Time codeine Allergy Verified 05/09/18 01:08 Medications: Current Medications Acetaminophen (Tylenol) 650 mg PO Q4H PRN PRN Reason: Headache/Fever or Mild Pain Last Admin: 09/08/17 21:31 Dose: 650 mg Aspirin (Ecotrin) 325 mg PO DAILY [facility] Last Admin: 09/10/17 09:40 Dose: 325 mg Atorvastatin Calcium (Lipitor) 40 mg PO HS [facility] Last Admin: 09/09/17 20:45 Dose: 40 mg Calcium Carbonate (Tums) 1,000 mg PO Q4H PRN PRN Reason: Heartburn or Indigestion Dextrose/Water (Dextrose 50%) 25 gm SLOW IVP PRN PRN PRN Reason: Hypoglycemia Docusate Sodium (Colace) 100 mg PO BID [facility] Last Admin: 09/10/17 09:39 Dose: 100 mg Fluoxetine HCl (Prozac) 40 mg PO DAILY [facility] Last Admin: 09/10/17 09:40 Dose: 40 mg Glucagon (Glucagon) 1 mg IM PRN PRN PRN Reason: Hypoglycemia Dextrose/Water (D5w) 1,000 mls @ 0 mls/hr IV .Q0M PRN; As Directed PRN Reason: Hypoglycemia Vancomycin HCl 1.25 gm/ Sodium (Chloride) 250 mls @ 166.667 mls/hr IVPB 0400, 1200,2000 [facility] Last Admin: 09/10/17 03:36 Dose: 250 mls Cefepime HCl 1 gm/ Sodium (Chloride) 100 mls @ 200 mls/hr IVPB Q12HR [facility] Last Admin: 09/10/17 09:40 Dose: 100 mls Labetalol HCl (Normodyne) 10 mg SLOW IVP Q4H PRN PRN Reason: Systolic BP > 180 Metformin HCl (Glucophage) 500 mg PO QAM-[facility] Last Admin: 09/10/17 09:40 Dose: 500 mg Metoprolol Tartrate (Lopressor) 25 mg PO BID [facility] Last Admin: 09/10/17 09:40 Dose: 25 mg Miscellaneous Medication (Pharmacy To Dose) 1 each IVPB PRN PRN PRN Reason: Pharmacy to dose Ondansetron HCl (Zofran Odt) 4 mg PO Q6H PRN PRN Reason: Nausea/Vomiting Ondansetron HCl (Zofran) 4 mg IVP Q6H PRN PRN Reason: Nausea/Vomiting Pantoprazole Sodium (Protonix) 40 mg PO DAILY [facility] Last Admin: 09/10/17 09:40 Dose: 40 mg Pramipexole Dihydrochloride (Mirapex) 0.5 mg PO HS [facility] Last Admin: 09/09/17 20:44 Dose: 0.5 mg Rivaroxaban (Xarelto) 15 mg PO BID-[facility] Last Admin: 09/10/17 09:40 Dose: 15 mg Senna (Senokot) 2 tab PO HSPRN PRN PRN Reason: Constipation Sodium Chloride (Flush - Normal Saline) 10 ml IVF Q12HR [facility] Last Admin: 09/10/17 09:41 Dose: 10 ml Sodium Chloride (Flush - Normal Saline) 10 ml IVF PRN PRN PRN Reason: Saline Flush Tramadol HCl (Ultram) 50 mg PO Q6H PRN PRN Reason: Pain
[2017-09-10] MEDS ORDERED: Iron Polysaccharides Complex 150 MG CAP PO SCH (11:15)
[2017-09-10 12:13] LABS: Vancomycin, Trough 17.5 ug/mL
[2017-09-10] MEDS: Iron Polysaccharides Complex 150 MG CAP PO SCH (20:49)
[2017-09-10] MEDS: Atorvastatin Calcium 40 MG TAB PO SCH (20:52)
[2017-09-10] MEDS: Pramipexole Di-HCl 0.125 MG TAB PO SCH (21:48)
[2017-09-11 04:44] LABS: #Basophils 0.1 thou/uL (0.0-0.2); #Eosinphils 0.3 thou/uL (0.0-0.7); #Lymphocytes 1.5 thou/uL (1.20-3.40); #Monocytes 0.5 thou/uL (0.11-0.59); #Neutrophils 5.5 thou/uL (1.40-6.50); %Basophils 0.9 % (0.0-1.0); %Eosinophils 3.9 % (0.0-10.0); %Lymphocytes 18.8 % (21.0-51.0); %Monocytes 6.4 % (0.0-10.0); Hemoglobin 7.9 g/dL (14.0-18.0); Mean Corpuscular HGB CONC 33.9 g/dL (32.0-36.0); Mean Corpuscular Hemoglobin 30.6 pg (27.0-31.0); Mean Corpuscular Volume 90.2 fl (80.0-94.0); Mean Platelet Volume 7.9 fL (7.4-10.4); Platelet Count 258 thou/uL (130-400); RBC Distribution Width 12.9 % (11.5-14.5); Red Blood Cell (RBC) Count 2.57 mill/uL (4.70-6.10); White Blood Cell (WBC) Count 7.9 thou/uL (4.8-10.8)
[2017-09-11 05:00] LABS: Anion Gap 11 mmol/L (10-20); BUN (Urea Nitrogen) 7 mg/dL (8.4-25.7); Calc. Creatinine Clearance 128 mL/min (70-130); Calcium 8.3 mg/dL (7.8-10.44); Carbon Dioxide 21 mmol/L (22-29); Chloride 109 mmol/L (98-107); Estimated GFR-MDRD Greater than 90; Glucose 96 mg/dL (70-105); Sodium 137 mmol/L (136-145)
[2017-09-11] MEDS: Vancomycin HCl 1.25 GM in Sodium Chloride 0.9% 250 ML 250 ML IVPB SCH (05:13)
--- NOTE | 2017-09-11 07:26 | PDOC.CTH ---
Cardiology Progress Note - Subjective Doing well. No complaints - Objective Vital Signs Temp Pulse Resp BP Pulse Ox 09/11/17 04:00 98.4 F 69 18 113/71 92 L 09/10/17 19:55 99.5 F 71 18 118/74 96 Weight 191 lb 9.6 oz 09/10/17 09/11/17 09/12/17 06:59 06:59 06:59 Intake Total 1310 1080 Output Total 1300 1100 Balance 10 -20 - Physical Examination General/Neuro: alert & oriented x3, NAD Neck: carotid US brisk, no JVD present Lungs: CTA, unlabored respirations Heart: PMI normal, RRR Abdomen: no HSM, NT/ND, soft Extremities: + femoral B - Labs Result Diagrams: 09/11/17 03:46 09/11/17 03:46 Troponin/CKMB CK-MB (CK-2) 0.5 ng/mL (0-6.6) 09/05/17 21:26 Troponin I 5.250 ng/mL (< 0.028) H* 09/06/17 03:38 - Assessment/Plan 1. Fever 2. PE 3. S/p CABG secondary to coronary artery dissection Fever may be related to PE. Timing of PE unknonwn. May have been initial cause of CP vs. post op. Currently negative BC. On Abx Continue with metoprolol at currrent dose. HR 60-70 Ambulate and PT
[2017-09-11] MEDS: FLUoxetine HCl 20 MG CAP PO SCH (08:52)
[2017-09-11] MEDS: Aspirin 325 mg Enteric Coated Tablet PO SCH (08:52)
[2017-09-11] MEDS: metFORMIN 500 MG TAB PO SCH (08:52)
[2017-09-11] MEDS: Docusate 100 MG CAP PO SCH ×2 (08:52→21:33)
[2017-09-11] MEDS: Metoprolol Tartrate 25 MG TAB PO SCH ×2 (08:52→21:34)
[2017-09-11] MEDS: Rivaroxaban 15 MG TAB PO SCH ×2 (08:52→17:58)
[2017-09-11] MEDS: Iron Polysaccharides Complex 150 MG CAP PO SCH ×2 (08:53→21:33)
[2017-09-11] MEDS: Cefepime 1 GM in Sodium Chloride 0.9% 100 ML IVPB SCH (08:55)
--- NOTE | 2017-09-11 13:33 | PDOC.PN ---
- Subjective Encounter Start Date: 09/11/17 Encounter Start Time: 07:20 Pt seen for followup re: pulmonary embolism. Denies chest pain, shortness of breath, fevers or chills. - Objective Resuscitation Status: Resuscitation Status FULL:Full Resuscitation MAR Reviewed: Yes Vital Signs & Weight: Vital Signs (12 hours) Temp Pulse Resp BP BP Pulse Ox 09/11/17 12:00 98.7 F 80 16 110/68 94 L 09/11/17 07:59 98.4 F 70 17 121/79 95 09/11/17 04:00 98.4 F 69 18 113/71 92 L Weight Weight 191 lb 9.6 oz I&O: 09/10/17 09/11/17 09/12/17 06:59 06:59 06:59 Intake Total 1310 1820 Output Total 1300 1950 Balance 10 -130 Result Diagrams: 09/11/17 03:46 09/11/17 03:46 EKG Reviewed by me: Yes (Tele: NSR) Phys Exam - Physical Examination Constitutional: NAD HEENT: moist MMs Neck: supple Respiratory: clear to auscultation bilateral Cardiovascular: RRR Gastrointestinal: soft Musculoskeletal: no edema Neurological: moves all 4 limbs Psychiatric: normal affect Skin: no rash Dx/Plan (1) Pulmonary embolism Code(s): I26.99 - OTHER PULMONARY EMBOLISM WITHOUT ACUTE COR PULMONALE Status : Acute Comment: continue rivaroxaban for 3-6 months, provoked PE (2) Fever Code(s): R50.9 - FEVER, UNSPECIFIED Status: Acute Comment: Final blood cultures negative. Discontinue antibiotics and observe (3) NSVT (nonsustained ventricular tachycardia) Code(s): I47.2 - VENTRICULAR TACHYCARDIA Status: Acute Comment: no recurrence (4) Dyslipidemia Code(s): E78.5 - HYPERLIPIDEMIA, UNSPECIFIED Status: Chronic Comment: continue statin (5) Hypertension Code(s): I10 - ESSENTIAL (PRIMARY) HYPERTENSION Status: Chronic Comment: stable (6) Coronary artery dissection Code(s): I25.42 - CORONARY ARTERY DISSECTION Status: Chronic Comment: s/p CABG - Plan * . Review of Systems - Review of Systems Respiratory: negative: Cough, Shortness of Breath, SOB with Excertion, Pleuritic Pain, Wheezing Cardiovascular: negative: chest pain, palpitations, orthopnea, paroxysmal nocturnal dyspnea, edema, light headedness - Medications/Allergies Allergies/Adverse Reactions: Allergies Allergy/AdvReac Type Severity Reaction Status Date / Time codeine Allergy Verified 09/06/17 01:08 Medications: Current Medications Acetaminophen (Tylenol) 650 mg PO Q4H PRN PRN Reason: Headache/Fever or Mild Pain Last Admin: 09/08/17 21:31 Dose: 650 mg Aspirin (Ecotrin) 325 mg PO DAILY [facility] Last Admin: 09/11/17 08:52 Dose: 325 mg Atorvastatin Calcium (Lipitor) 40 mg PO HS [facility] Last Admin: 09/10/17 20:52 Dose: 40 mg Calcium Carbonate (Tums) 1,000 mg PO Q4H PRN PRN Reason: Heartburn or Indigestion Dextrose/Water (Dextrose 50%) 25 gm SLOW IVP PRN PRN PRN Reason: Hypoglycemia Docusate Sodium (Colace) 100 mg PO BID [facility] Last Admin: 09/11/17 08:52 Dose: 100 mg Fluoxetine HCl (Prozac) 40 mg PO DAILY [facility] Last Admin: 09/11/17 08:52 Dose: 40 mg Glucagon (Glucagon) 1 mg IM PRN PRN PRN Reason: Hypoglycemia Dextrose/Water (D5w) 1,000 mls @ 0 mls/hr IV .Q0M PRN; As Directed PRN Reason: Hypoglycemia Labetalol HCl (Normodyne) 10 mg SLOW IVP Q4H PRN PRN Reason: Systolic BP > 180 Metformin HCl (Glucophage) 500 mg PO QAM-[facility] Last Admin: 09/11/17 08:52 Dose: 500 mg Metoprolol Tartrate (Lopressor) 25 mg PO BID [facility] Last Admin: 09/11/17 08:52 Dose: 25 mg Miscellaneous Medication (Pharmacy To Dose) 1 each IVPB PRN PRN PRN Reason: Pharmacy to dose Ondansetron HCl (Zofran Odt) 4 mg PO Q6H PRN PRN Reason: Nausea/Vomiting Ondansetron HCl (Zofran) 4 mg IVP Q6H PRN PRN Reason: Nausea/Vomiting Pantoprazole Sodium (Protonix) 40 mg PO DAILY [facility] Last Admin: 09/11/17 08:52 Dose: 40 mg Polysaccharide Iron Complex (Niferex) 150 mg PO BID [facility] Last Admin: 09/11/17 08:53 Dose: 150 mg Pramipexole Dihydrochloride (Mirapex) 0.5 mg PO HS [facility] Rivaroxaban (Xarelto) 15 mg PO BID-[facility] Last Admin: 09/11/17 08:52 Dose: 15 mg Senna (Senokot) 2 tab PO HSPRN PRN PRN Reason: Constipation Sodium Chloride (Flush - Normal Saline) 10 ml IVF Q12HR [facility] Last Admin: 09/11/17 08:53 Dose: 10 ml Sodium Chloride (Flush - Normal Saline) 10 ml IVF PRN PRN PRN Reason: Saline Flush Tramadol HCl (Ultram) 50 mg PO Q6H PRN PRN Reason: Pain
--- NOTE | 2017-09-11 18:30 | PRG ---
DATE OF SERVICE: 09/11/2017 ELECTROPHYSIOLOGY FOLLOWUP NOTE REFERRING PHYSICIAN: Rober Neff M.D. SUBJECTIVE: Mr. Cortez is doing better today. No further dizziness or palpitations are noted. Hi s fevers improved. OBJECTIVE: VITAL SIGNS: Blood pressure is 110/68, heart rate 80, respiration 16, temperature 98.7 degrees Fahre nheit. GENERAL: Alert and oriented man, in no apparent distress. NECK: Supple. Jugular veins not distended. CHEST: Coarse without crackles. CARDIOVASCULAR: Heart sounds are regular to rate and rhythm. No murmur or gallop. ABDOMEN: Benign. Bowel sounds positive. EXTREMITIES: Lower extremity edema, clubbing or cyanosis. LABORATORY DATA: White count 7.9, hemoglobin 7.9, platelet count is 258 today. Electrolytes: Sodiu m 137, potassium 4, BUN is 7, creatinine 0.78. The microbiology shows no blood cultures positive x5 days. Telemetry strips reveal no further ventricular arrhythmias. ASSESSMENT AND PLAN: Mr. Cortez is a 57-year-old man with history of recent myocardial infarction and revascularization. He had a short nonsustained ventricular tachycardia run. Left ventricular ej ection fraction is a relatively benign at 40%-45% range. This was asymptomatic. At this point, we will continue beta judy therapy. He is here for an unex plained fevers so far. Continue further monitoring. Plan long-term recheck LVEF in 3 months after bypass surgery to see if he would qualify for prophylac tic ICD implant or a monitor for any further ventricular arrhythmias.
[2017-09-11] MEDS ORDERED: Pramipexole Di-HCl 1 MG TAB PO SCH (21:00)
[2017-09-11] MEDS: Atorvastatin Calcium 40 MG TAB PO SCH (21:33)
--- NOTE | 2017-09-12 07:11 | PDOC.CTH ---
Cardiology Progress Note - Subjective Doing well. No complaints - Objective Vital Signs Temp Pulse Resp BP Pulse Ox 09/12/17 04:00 98.8 F 69 18 108/68 94 L 09/11/17 19:30 98.1 F 72 14 112/68 95 Weight 199 lb 09/11/17 09/12/17 09/13/17 06:59 06:59 06:59 Intake Total 1820 1150 Output Total 1950 550 Balance -130 600 - Physical Examination General/Neuro: alert & oriented x3, NAD Neck: carotid US brisk, no JVD present Lungs: CTA, unlabored respirations Heart: RRR Abdomen: no HSM, NT/ND, soft Extremities: + femoral B - Labs Result Diagrams: 09/11/17 03:46 09/11/17 03:46 Troponin/CKMB CK-MB (CK-2) 0.5 ng/mL (0-6.6) 09/05/17 21:26 Troponin I 5.250 ng/mL (< 0.028) H* 09/06/17 03:38 - Assessment/Plan 1. Fever 2. PE 3. S/p CABG secondary to coronary artery dissection Final BC negative Abx per Dr. Navarro Fever likely related to PE On NOAC. No recurrent dysrhythmias. Continue current course. Ok for dc from CV standpoint with close o/p fu
[2017-09-12] MEDS: Rivaroxaban 15 MG TAB PO SCH (09:16)
[2017-09-12] MEDS: FLUoxetine HCl 20 MG CAP PO SCH (09:17)
[2017-09-12] MEDS: Aspirin 325 mg Enteric Coated Tablet PO SCH (09:17)
[2017-09-12] MEDS: Docusate 100 MG CAP PO SCH (09:17)
[2017-09-12] MEDS: Iron Polysaccharides Complex 150 MG CAP PO SCH (09:18)
[2017-09-12] MEDS: Metoprolol Tartrate 25 MG TAB PO SCH (09:18)
[2017-09-12] MEDS: metFORMIN 500 MG TAB PO SCH (11:24)
[2017-09-12 11:29] VITALS: BP 120/77; TEMP 98.2
--- NOTE | 2017-09-12 17:57 | DIS ---
DATE OF ADMISSION: 09/05/2017 DATE OF DISCHARGE: 09/12/2017 PRIMARY CARE PROVIDER: Loyd Pedraza M.D. DISCHARGE DIAGNOSES: 1. Sepsis. 2. Pulmonary embolism. 3. Nonsustained ventricular tachycardia. CONDITION OF PATIENT ON THE DAY OF DISCHARGE: Stable. I assessed Mr. Cortez on the day of dischar . He denies any chest pain or shortness of breath. Vital signs are stable. He is afebrile. S1 a nd S2 are heard, regular. Lungs are clear to auscultation bilaterally. CONSULTATIONS DURING THIS HOSPITALIZATION: Cardiology, Dr. Neff. Cardiovascular Surgery, Dr. Shane hernandez and Electrophysiology, Dr. Merritt Keating. DISCHARGE MEDICATIONS: Aspirin 325 mg daily, Lipitor 40 mg at bedtime, vitamin B 12 of 2500 mcg chloe y, Prozac 40 mg daily, metformin 500 mg in the morning, Lopressor 25 mg 2 times a day, Protonix 40 mg daily, pramipexole 0.125 mg tablet, 4 tablets at bedtime, rivaroxaban 15 mg 2 times a day of for 18 more days, then 20 mg daily, Bactrim-DS 1 tablet 2 times a day for 1 week. HOSPITAL COURSE: Mr. Cortez is a pleasant 57-year-old gentleman who was admitted to [facility] for sepsis on 09/05/2017. He was treated with broad spectrum intravenous antibio tics. Cultures were eventually negative, and the source of infection was not found. He has been sta rted on oral antibiotics at the time of discharge. He underwent CT angiogram on 09/08/2017, which showed a right lower lobe pulmonary embolus with low c lot burden. He has been started on rivaroxaban after discussion regarding benefits versus risks of o ral anticoagulants. He was seen by Cardiology Service for nonsustained ventricular tachycardia. He had a 2D echocardiogr am on 09/08/2017, which showed left ventricular ejection fraction of 40%-45%, hypokinetic motion of t he inferior wall, hypokinetic free wall, mild mitral regurgitation, and moderate tricuspid regurgitat ion. He was also seen by Electrophysiology Service who recommended continuing him on beta judy an d titrating it as patient can tolerate it. They also recommend repeating his echocardiogram 3 months after surgery and if ejection fraction is low, to consider ICD. Many thanks for allowing me to participate in your patient's care. Please feel free to contact me wi th any questions or concerns. DISCHARGE DESTINATION: Home. TOTAL AMOUNT OF TIME SPENT COORDINATING THIS DISCHARGE: 19 minutes.
== END 2017-09-12 11:59 | disposition home or self-care (01) | DRG 862 ==
LOC: ERS 21:04 → 2NO 23:56
PROVIDERS: ADMIT Internal Medicine; ATTEND Internal Medicine
DX: T81.4XXA Infection following a procedure, initial encounter (principal); A41.9 Sepsis, unspecified organism; I26.99 Other pulmonary embolism without acute cor pulmonale; I25.10 Atherosclerotic heart disease of native coronary artery without angina pectoris; Z95.1 Presence of aortocoronary bypass graft; G25.81 Restless legs syndrome; K21.9 Gastro-esophageal reflux disease without esophagitis; Z79.84 Long term (current) use of oral hypoglycemic drugs; F32.9 Major depressive disorder, single episode, unspecified; E78.5 Hyperlipidemia, unspecified; Z88.5 Allergy status to narcotic agent; E11.22 Type 2 diabetes mellitus with diabetic chronic kidney disease; N18.2 Chronic kidney disease, stage 2 (mild); I12.9 Hypertensive chronic kidney disease with stage 1 through stage 4 chronic kidney disease, or unspecified chronic kidney disease; Z79.82 Long term (current) use of aspirin; I08.1 Rheumatic disorders of both mitral and tricuspid valves
CPT/HCPCS: 36415; 36416; 71045; 71046; 71275; 80048; 80076; 80202; 81003; 82553; 83735; 84443; 84484; 85025; 87040; 93005; 93306; 93798; 96365; 96375; A4216; J0692; J3370; J7050; J7626